=== PATIENT | female | born 1965 | race Two or more races ===

== ENCOUNTER 2017-07-11 14:50 | Inpatient (IN) | payer SELFPAY ==
[~2017-07-11] VITALS: Ht 152.4 cm; Wt 44.0 kg
[2017-07-11] VITALS (9 sets, daily range): BP systolic 127–162; BP diastolic 74–88; PULSE 60–82; RESP 16–20; TEMP 98.7–99; O2SAT 97–100
[2017-07-11 15:13] LABS: AUTOMATED NEUTROPHIL # 4.1 TH/MM3 (1.8-7.7); BASOPHIL # 0.1 TH/MM3 (0-0.2); BASOPHIL % 0.9 % (0.0-2.0); EOSINOPHIL # 0.1 TH/MM3 (0-0.4); HEMATOCRIT 38.4 % (35.0-46.0); HEMOGLOBIN 11.8 GM/DL (11.6-15.3); LYMPH % 36.5 % (9.0-44.0); LYMPHOCYTE # 2.6 TH/MM3 (1.0-4.8); MEAN CELL VOLUME 65.7 FL (80.0-100.0); MEAN CORPUSCULAR HEMOGLOBIN 20.3 PG (27.0-34.0); MEAN CORPUSCULAR HGB CONC 30.9 % (32.0-36.0); MONO % 4.6 % (0.0-8.0); MONOCYTE # 0.3 TH/MM3 (0-0.9); PLATELET COUNT 282 TH/MM3 (150-450); RED BLOOD COUNT 5.84 MIL/MM3 (4.00-5.30); RED CELL DISTRIBUTION WIDTH 15.3 % (11.6-17.2); WHITE BLOOD COUNT 7.2 TH/MM3 (4.0-11.0)
[2017-07-11 15:16] LABS: CHLORIDE 105 MEQ/L (98-107); SODIUM (NA) 139 MEQ/L (136-145)
--- NOTE | 2017-07-11 15:17 | RADRPT ---
EXAM DATE: 07/11/2017 3:07 PM EDT AGE/SEX: 52 years / Female INDICATIONS: Stroke alert, left sided weakness today. CLINICAL DATA: This is the patient's initial encounter. Patient reports that signs and symptoms have been present for 1 day and indicates a pain score of Nonresponsive. MEDICAL/SURGICAL HISTORY: Non-responsive. Non-responsive. RADIATION DOSE: 52.41 CTDI (mGy) COMPARISON: No prior [place] exams available for comparison. Report was called by [ ] TECHNIQUE: CT of the head without contrast. Using automated exposure control and adjustment of the mA and/or kV according to patient size, radiation dose was kept as low as reasonably achievable to ob tain optimal diagnostic quality images. FINDINGS: Acute parenchymal hemorrhage seen in the region of the right thalamus. The bleed measures a pproximately 2 cm in size. Minimal mass effect on surrounding parenchyma. No measurable midline shift . Previous aneurysm clipping of the right side of the [place]. No bleed or other acute abnorma lity in this region. 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 No evidence of an acute ischemic event. Nothing christina t looks like a mass either. Previous right frontotemporal craniotomy. No acute skull abnormality demonstrated. CONCLUSION: Acute right thalamic bleed. No measurable midline shift. No other acute intracranial abno rmality demonstrated. Report called to Dr. Meraz at 3:12 PM. Electronically signed by: Ubaldo Villegas MD 07/11/2017 3:15 PM EDT
[2017-07-11 15:19] LABS: CALCIUM 9.1 MG/DL (8.5-10.1); PROTHROMBIN TIME - PATIENT 10.3 SEC (9.8-11.6)
[2017-07-11 15:20] LABS: ALBUMIN 4.5 GM/DL (3.4-5.0); BICARBONATE 27.1 MEQ/L (21.0-32.0); BLOOD UREA NITROGEN 13 MG/DL (7-18); GLUCOSE,RANDOM 125 MG/DL (74-106)
[2017-07-11] MEDS ORDERED: LIPI40TA PO (15:20)
[2017-07-11] MEDS ORDERED: LISI-519 PO (15:20)
[2017-07-11 15:23] LABS: ALT (GPT) 46 U/L (10-53); AST (GOT) 45 U/L (15-37); CREATININE 0.91 MG/DL (0.50-1.00); GLOMERULAR FILTRATION RATE 64 ML/MIN (>89)
[2017-07-11 15:24] LABS: TOTAL BILIRUBIN ADULT 0.5 MG/DL (0.2-1.0)
[2017-07-11 15:26] LABS: ALKALINE PHOSPHATASE 65 U/L (45-117)
[2017-07-11 15:28] LABS: TROPONIN I LESS THAN 0.02 NG/ML (0.02-0.05)
[2017-07-11] MEDS ORDERED: IODIXANOL 320 MG/ML 10 ML VIAL (for Rad CT) IVCONTRAST ONE (15:30)
[2017-07-11] MEDS ORDERED: LISI10TA3 PO (15:39)
[2017-07-11] MEDS ORDERED: ZANT150T2 PO (15:39)
[2017-07-11] MEDS ORDERED: MAGNESIUM HYDROXIDE SUSP 30 ML CUP PO PRN (16:00)
[2017-07-11] MEDS ORDERED: MORPHINE SULFATE 4 MG/ML INJ IV PUSH PRN (16:00)
[2017-07-11] MEDS ORDERED: LABETALOL HCL 100 MG/20 ML VIAL IV PUSH PRN (16:00)
[2017-07-11] MEDS ORDERED: ENALAPRILAT 2.5 MG/2 ML VIAL IV PUSH PRN (16:00)
[2017-07-11] MEDS ORDERED: LACTULOSE SYRUP 20 GM/30 ML CUP PO PRN (16:00)
[2017-07-11] MEDS ORDERED: RESP: ALBUTEROL 2.5 MG/3 ML NEB (PRN) INH (16:00)
[2017-07-11] MEDS ORDERED: CHLORHEXIDINE GLUCONATE 2 % 1 PACK (2 CLOTHS) TOP PRN (16:00)
[2017-07-11] MEDS ORDERED: BISACODYL 10 MG SUPP RECTAL PRN (16:00)
[2017-07-11] MEDS ORDERED: ACETAMINOPHEN 325 MG TAB PO PRN (16:00)
[2017-07-11] MEDS ORDERED: NURSING INFORMATION XX SCH (16:00)
[2017-07-11] MEDS ORDERED: niCARdipine INJ 25 MG in SODIUM CHLOR 0.9% 250 ML INJ 250 ML IV PRN (16:00)
[2017-07-11] MEDS ORDERED: ONDANSETRON HCL 4 MG/2 ML VIAL IV PUSH PRN (16:00)
[2017-07-11] MEDS ORDERED: SODIUM CHLORIDE 0.9% FLUSH 10 ML FLUSH IV FLUSH PRN (16:00)
[2017-07-11] MEDS ORDERED: SENNOSIDES 8.6 MG TAB PO PRN (16:00)
--- NOTE | 2017-07-11 16:05 | PD ---
HPI Chief Complaint: Stroke Alert Time Seen by Provider: 14:56 Travel History International Travel<30 days: No Contact w/Intl Traveler<30days: No Traveled to known affect area: No History of Present Illness HPI 52 y/o female presents with five-minute onset of left-sided weakness and numbness. She states that she has no other concurrent complaints at this time. She states she has had 2 prior strokes but is not on any blood thinners. When I asked her why she states she has had prior bleeding on the brain. She denies any modifying factors. Quality is tingly. Severity is entire left side. Duration is 5 minutes. PFSH Past Medical History Cancer: Yes (BREAST RESOLVED) High Cholesterol: Yes Cerebrovascular Accident: Yes GERD: Yes Hypertension: Yes Tetanus Vaccination: < 5 Years Influenza Vaccination: Yes ?: Not Past Surgical History Neurologic Surgery: Yes (NEURO SX ANEURYSM CLIPS IN BRAIN) Other Surgery: Yes (LEFT BREAST LUMPECTOMY) Social History Alcohol Use: No Tobacco Use: No Substance Use: No Allergies-Medications (Allergen,Severity, Reaction): Coded Allergies: No Known Allergies (Unverified , 07/11/17) Reported Meds & Prescriptions Reported Meds & Active Scripts Active Reported Zantac (Ranitidine HCl) 150 Mg Tab 150 Mg PO DAILY Lisinopril 10 Mg Tab 10 Mg PO DAILY Lipitor (Atorvastatin Calcium) 40 Mg Tab 40 Mg PO HS Review of Systems Except as stated in HPI: all other systems reviewed are Neg Physical Exam Exam Limitations: Other: (Acute weakness) Narrative GENERAL: 52-year-old female in no apparent distress SKIN: Focused skin assessment warm/dry. HEAD: Atraumatic. Normocephalic. EYES: Pupils equal and round. No scleral icterus. No injection or drainage. ENT: No nasal bleeding or discharge. Mucous membranes pink and moist. NECK: Trachea midline. CARDIOVASCULAR: Regular rate and rhythm. RESPIRATORY: No accessory muscle use. Clear to auscultation. Breath sounds equal bilaterally. GASTROINTESTINAL: Abdomen soft, non-tender, nondistended. MUSCULOSKELETAL: No obvious deformities. No clubbing. No cyanosis. NEUROLOGICAL: Awake and alert. Decreased grasp on the left, pronator drift on the left, left leg drops after 1 second, normal speech. Patient states she feels numb to the entire left side of her body and her left lower face Data Data Last Documented VS Vital Signs Date Time Temp Pulse Resp B/P (MAP) Pulse Ox O2 Delivery O2 Flow Rate FiO2 07/11/17 15:38 98.7 68 16 152/76 (101) 98 Room Air 07/11/17 15:10 21 Orders Orders Cath For Specimen (07/11/17 14:56) Neuro Checks Q2HX12,Q4H (07/11/17 14:56) Nursing Bedside Swallow Assess .ONCE (07/11/17 14:56) Activity Bed Rest (07/11/17 14:56) Diet Npo (07/11/17 Dinner) Prothrombin Time / Inr (Pt) (07/11/17 14:56) Act Partial Throm Time (Ptt) (07/11/17 14:56) Complete Blood Count With Diff (07/11/17 14:56) Fibrinogen (07/11/17 14:56) Creatine Kinase (Cpk) (07/11/17 14:56) Troponin I (07/11/17 14:56) Ua Includes Microscopic (07/11/17 14:56) Drug Screen, Random Urine (07/11/17 14:56) Type And Screen (07/11/17 14:56) Ct Brain W/O Iv Contrast(Rout) (07/11/17 ) Cta Brain W Iv Contrast W 3d (07/11/17 14:56) Cta Neck W Iv Contrast W 3d (07/11/17 14:56) Chest, Single Ap (07/11/17 ) Electrocardiogram (07/11/17 ) Consult Neurology (07/11/17 14:56) Blood Glucose (07/11/17 14:56) Ecg Monitoring (07/11/17 14:56) Iv Access Insert/Monitor (07/11/17 14:56) NPO (07/11/17 14:56) Oximetry (07/11/17 14:56) Resp Oxygen Nc Stroke (07/11/17 ) Comprehensive Metabolic Panel (07/11/17 14:56) Iodixanol 320 Inj (Rad Ct) (Visipaque 32 (07/11/17 15:30) Admit Order (Ed Use Only) (07/11/17 15:45) Labs Laboratory Tests Test 07/11/17 14:55 White Blood Count 7.2 TH/MM3 Red Blood Count 5.84 MIL/MM3 Hemoglobin 11.8 GM/DL Hematocrit 38.4 % Mean Corpuscular Volume 65.7 FL Mean Corpuscular Hemoglobin 20.3 PG Mean Corpuscular Hemoglobin Concent 30.9 % Red Cell Distribution Width 15.3 % Platelet Count 282 TH/MM3 Mean Platelet Volume 10.0 FL Neutrophils (%) (Auto) 57.0 % Lymphocytes (%) (Auto) 36.5 % Monocytes (%) (Auto) 4.6 % Eosinophils (%) (Auto) 1.0 % Basophils (%) (Auto) 0.9 % Neutrophils # (Auto) 4.1 TH/MM3 Lymphocytes # (Auto) 2.6 TH/MM3 Monocytes # (Auto) 0.3 TH/MM3 Eosinophils # (Auto) 0.1 TH/MM3 Basophils # (Auto) 0.1 TH/MM3 CBC Comment AUTO DIFF Differential Comment AUTO DIFF CONFIRMED Prothrombin Time 10.3 SEC Prothromb Time International Ratio 1.0 RATIO Activated Partial Thromboplast Time 23.8 SEC Fibrinogen 242 mg/dL Blood Urea Nitrogen 13 MG/DL Creatinine 0.91 MG/DL Random Glucose 125 MG/DL Total Protein 9.0 GM/DL Albumin 4.5 GM/DL Calcium Level 9.1 MG/DL Alkaline Phosphatase 65 U/L Aspartate Amino Transf (AST/SGOT) 45 U/L Alanine Aminotransferase (ALT/SGPT) 46 U/L Total Bilirubin 0.5 MG/DL Sodium Level 139 MEQ/L Potassium Level 4.8 MEQ/L Chloride Level 105 MEQ/L Carbon Dioxide Level 27.1 MEQ/L Anion Gap 7 MEQ/L Estimat Glomerular Filtration Rate 64 ML/MIN Phosphorus Level 3.6 MG/DL Magnesium Level 2.5 MG/DL Total Creatine Kinase 143 U/L Troponin I LESS THAN 0.02 NG/ML [facility] Medical Decision Making Medical Screen Exam Complete: Yes Emergency Medical Condition: Yes Medical Record Reviewed: Yes (Past history confirmed) Interpretation(s) CBC & BMP Diagram 07/11/17 14:55 Total Protein 9.0 H, Albumin 4.5, Calcium Level 9.1, Alkaline Phosphatase 65, Aspartate Amino Transf (AST/SGOT) 45 H, Alanine Aminotransferase (ALT/SGPT) 46, Total Bilirubin 0.5 Last [address] 07/11/17 0000 Signed Impressions: CONCLUSION: Acute right thalamic bleed. No measurable midline shift. No other a cute intracranial abnormality demonstrated. Report called to Dr. Meraz at 3:12 P M. cta prelim discussed with radiologist and no large aneurysm or clot or critical stenosis Differential Diagnosis Stroke, bleed, mass Narrative Course Given timeline stroke alert was initiated. With history of prior intracranial hemorrhage she is not a candidate for TPA. Saw large bleed on initial CT and discussed with neurosurgery. Initial blood pressure is stable so no antihypertensive needed at this time. Patient updated and agrees to admission. on recheck no change in symptoms, will go to ICU for close monitoring Critical Care Narrative Aggregate critical care time was 35 minutes. Time to perform other separately billable procedures was not included in the critical care time. My time did not include minutes spent treating any other patients simultaneously or on activities that did not directly contribute to the patient's treatment. The services I provided to this patient were to treat and/or prevent clinically significant deterioration that could result in: Herniation, I provided critical care services requiring my management, as noted below: Chart data review, documentation time, medication orders and management, vital sign assessments/reviewing monitor data, ordering and reviewing lab tests, ordering and interpreting/reviewing x-rays and diagnostic studies, care of the patient and discussion of the patient with the admitting physicians. Physician Communication Physician Communication dr gutierrez will follow at the main dr gar agrees to admit Diagnosis Primary Impression: Thalamic hemorrhage Admitting Information Admitting Physician Requests: Admit Obdulia Meraz MD Jul 11, 2017 16:05
--- NOTE | 2017-07-11 16:08 | RADRPT ---
EXAM DATE: 07/11/2017 3:50 PM EDT AGE/SEX: 52 years / Female INDICATIONS: Stroke alert. CLINICAL DATA: This is the patient's initial encounter. Patient reports that signs and symptoms have been present for 1 day and indicates a pain score of 0/10. MEDICAL/SURGICAL HISTORY: None. None. COMPARISON: No prior [place] exams available for comparison. FINDINGS: A single AP view of the chest demonstrates the lungs to be symmetrically aerated without evidence of mass, infiltrate or effusion. The cardiomediastinal contours are unremarkable. Osseous structures a re intact. CONCLUSION: No evidence of acute cardiopulmonary disease. Electronically signed by: Ubaldo Villegas MD 07/11/2017 4:07 PM EDT
[2017-07-11] MEDS: SODIUM CHLOR 0.9% 1000 ML INJ 1,000 ML IV SCH (16:20)
[2017-07-11 16:35] LABS: BILIRUBIN, URINE NEG (NEG); BLOOD, URINE NEG (NEG); GLUCOSE,URINE NEG (NEG); KETONE, URINE NEG (NEG); NITRITE,URINE NEG (NEG); PH, URINE 6.5 (5.0-8.5); URINE LEUKOCYTE ESTERASE NEG (NEG)
[2017-07-11 16:39] LABS: URINE COLOR STRAW (YELLW/STRAW)
--- NOTE | 2017-07-11 16:41 | RADRPT ---
EXAM DATE: 07/11/2017 4:29 PM EDT AGE/SEX: 52 years / Female INDICATIONS: Stroke alert, left sided weakness today. CLINICAL DATA: This is the patient's initial encounter. Patient reports that signs and symptoms have been present for 1 day and indicates a pain score of Nonresponsive. MEDICAL/SURGICAL HISTORY: Non-responsive. Non-responsive. RADIATION DOSE: 42.24 CTDI (mGy) ; Combined studies COMPARISON: CT of the brain dated 07/11/2017 is used for comparison TECHNIQUE: Volumetric scanning was performed using a multi-row detector CT scanner during bolus infu prince of 97 ml Visipaque 320 (iodixanol) nonionic water-soluble contrast as a cumulative dose for mul tiple exams. The data was post processed with a variety of visualization algorithms including full volume maximum intensity projection, multi-planar sliding thin slab reformation, curved planar reform ation, and surface rendering techniques. Using automated exposure control and adjustment of the mA a nd/or kV according to patient size, radiation dose was kept as low as reasonably achievable to obtain optimal diagnostic quality images. FINDINGS: There is excellent visualization of the major intracranial arteries out to the second-order branch ve ssels. There is no evidence for aneurysm, vessel truncation or stenosis, and no evidence for vascula r malformation. Aneurysm clip is again noted in the expected region of the right A1 segment. CONCLUSION: 1. No evidence of significant stenosis or occlusion. The findings were discussed with Dr. Meraz at 4:40 PM on 07/11/2017. Electronically signed by: Kwaku Larry MD 07/11/2017 4:40 PM EDT
[2017-07-11 16:43] LABS: AMORPHOUS SEDIMENT, URINE MOD; SQUAMOUS EPITHELIAL CELL URINE 0-5 /hpf (0-5)
[2017-07-11 17:06] LABS: MAGNESIUM 2.5 MG/DL (1.5-2.5)
--- NOTE | 2017-07-11 17:06 | RADRPT ---
EXAM DATE: 07/11/2017 3:34 PM EDT AGE/SEX: 52 years / Female INDICATIONS: Stroke alert, left sided weakness today. CLINICAL DATA: This is the patient's initial encounter. Patient reports that signs and symptoms have been present for 1 day and indicates a pain score of Nonresponsive. MEDICAL/SURGICAL HISTORY: Non-responsive. Non-responsive. RADIATION DOSE: 42.24 CTDI (mGy) ; Combined studies COMPARISON: No prior [place] exams available for comparison. TECHNIQUE: Volumetric scanning was performed using a multirow detector CT scanner during bolus infus ion of 97 ml Visipaque 320 (iodixanol) nonionic water-soluble contrast as a cumulative dose for mult iple exams. The data was postprocessed with a variety of visualization algorithms including full-vo lume maximum intensity projection, multiplanar sliding thin-slab reformation, curved-planar reformati on, and surface-rendering techniques. Using automated exposure control and adjustment of the mA and/ or kV according to patient size, radiation dose was kept as low as reasonably achievable to obtain op timal diagnostic quality images. Elevated flow velocities and ICA/CCA ratios have been found to correlate with increased degrees of ve ssel stenosis, calculated as percentage of diameter relative to a normal segment of distal ICA/CCA. FINDINGS: Aortic Arch: There is a three-vessel origin of the great vessels from the aorta. No evidence of ost ial narrowing Right Carotid: The common carotid artery is intact. The carotid bulb has a normal configuration wit hout ulceration or narrowing. The internal carotid artery lumen is smooth without stenosis. The ext ernal carotid artery is intact. Left Carotid: The common carotid artery is intact. The carotid bulb has a normal configuration with out ulceration or narrowing. The internal carotid artery lumen is smooth without stenosis. The exte rnal carotid artery is intact. Vertebrals: The vertebral arteries have a symmetric diameter. No stenotic lesions are seen. There is pleural thickening and adjacent parenchymal consolidation of the visualized left lung apex, presumably scarring but a 3 month follow-up noncontrast chest CT is suggested. CONCLUSION: 1. Carotid CTA within normal limits. 2. Mildly masslike pleural thickening and parenchymal consolidation of the left lung apex. Please se e above. Electronically signed by: Ubaldo Villegas MD 07/11/2017 5:04 PM EDT
[2017-07-11 17:10] LABS: PHOSPHORUS 3.6 MG/DL (2.5-4.9)
[2017-07-11] MEDS: DOCUSATE SODIUM 50 MG/SENNA 8.6 MG TAB PO SCH (20:10)
[2017-07-11] MEDS: ATORVASTATIN 40 MG TAB PO SCH (20:10)
[2017-07-11] MEDS: levETIRAcetam INJ 100 ML IV SCH (20:10)
[2017-07-11] MEDS: SODIUM CHLORIDE 0.9% FLUSH 10 ML FLUSH IV FLUSH SCH (20:10)
--- NOTE | 2017-07-11 20:36 | MB ---
cc: Bo RENDON Jorge DATE: 07/11/2017 CHIEF COMPLAINT: Transfer from [facility]. HISTORY OF PRESENT ILLNESS: This is a 52-year-old female patient with previous history of craniotomy for aneurysm clipping. The patient reports that she had been doing well, when around 2 o'clock she noted significant weakness of the left side. At that time, she denies having any headaches or any nausea or vomiting. She went to [facility] for evaluation. CT scan was performed, which was abnormal and, because of this, the patient eventually was transferred. The patient reports that presently she is doing well. She feels that her weakness on the left side is improving. She denies any numbness at the present time. She denies any headaches or any problems with nausea and vomiting. PAST MEDICAL HISTORY: Remarkable for breast cancer resolved ,hypertension, GERD, aneurysm clipping and high cholesterol. PAST SURGICAL HISTORY: Includes craniotomy and left breast lumpectomy. SOCIAL HISTORY: She denies use of alcohol, tobacco or substance abuse. ALLERGIES: SHE HAS NO ALLERGIES. MEDICATIONS: 1. Zantac. 2. Lisinopril. 3. Lipitor. REVIEW OF SYSTEMS: Pertaining to above history as noted. PHYSICAL EXAMINATION: VITAL SIGNS: Blood pressure of 140/74, pulse of 71, temperature of 98.7, pulse oximetry of 98 with a respiratory rate of 16. GENERAL: The patient is sitting in bed in no acute distress, well-developed, thin female, pleasant. HEENT: Unremarkable, except for evidence of previous craniotomy. NECK: Supple with good carotid pulses bilaterally. CHEST: Symmetric. LUNGS: Clear. HEART: Shows a regular rhythm with normal heart sounds. ABDOMEN: Soft and nontender. EXTREMITIES: Clear. NEUROLOGIC: The patient is alert and awake. She is oriented x3. She follows commands well. Speech is fluent. She is pleasant. Cranial nerves 2-12 are intact, except for a mild asymmetry of the left face. Motor exam is 5+/5, except there is a mild pronator drift on the left side and the left leg has some very mild weakness. Sensory exam is intact to touch. Deep tendon reflexes are trace at all sites. IMAGING STUDIES: Review of a CT scan of the brain shows evidence of a right thalamic hemorrhage with minimal mass effect. There is also evidence of an aneurysm clip on the right and evidence of a previous craniotomy. CTA of the head showed no evidence of aneurysm or AVM. CTA of the neck was unremarkable for stenosis. OVERALL IMPRESSION: Hypertensive intracranial hemorrhage thalamic. RECOMMENDATIONS: At this time, place the patient on neurological observation with vital signs and neuro checks. Maintain control of the blood pressure, preferably in the range of the 120s. May need physical therapy, because of her left-sided weakness. Would keep on the clear liquids for tonight and then may advance diet in the morning if stable. She should also have a repeat CT scan of the brain in the morning. Bo TINSLEY/ , 08:01 PM , 08:35 PM MTDD
--- NOTE | 2017-07-11 23:44 | HHI.HP ---
[facility] Service Critical Care Medicine Primary Care Physician Unknown Admission Diagnosis Intracranial bleed Diagnosis: Travel History International Travel<30 Days: No Contact w/Intl Traveler <30 Da: No Traveled to Known Affected Are: No History of Present Illness 52-year-old female presents with a new onset of left-sided weakness and numbness. She has no other concurrent complaints at this time. She has had 2 prior strokes but is not on any blood thinners because she has had prior bleeding in the brain. She denies any modifying factors. CT head obtained in the emergency department showed acute right thalamic bleed with no measurable midline shift. Review of Systems Constitutional: DENIES: Diaphoretic episodes, Fatigue, Fever, Weight gain, Weight loss, Chills, Dizziness, Change in appetite, Night Sweats Endocrine: DENIES: Abnorml menstrual pattern, Heat/cold intolerance, Polydipsia , Polyuria, Polyphagia Eyes: DENIES: Blurred vision, Diplopia, Eye inflammation, Eye pain, Vision loss , Photosensitivity, Double Vision Ears, nose, mouth, throat: DENIES: Tinnitus, Hearing loss, Vertigo, Nasal discharge, Oral lesions, Throat pain, Hoarseness, Ear Pain, Running Nose, Epistaxis, Sinus Pain, Toothache, Odynophagia Respiratory: DENIES: Apneas, Cough, Snoring, Wheezing, Hemoptysis, Sputum production, Shortness of breath Cardiovascular: DENIES: Chest pain, Palpitations, Syncope, Dyspnea on Exertion , PND, Lower Extremity Edema, Orthopnea, Claudication Gastrointestinal: DENIES: Abdominal pain, Black stools, Bloody stools, Constipation, Diarrhea, Nausea, Vomiting, Difficulty Swallowing, Anorexia Genitourinary: DENIES: Abnormal vaginal bleeding, Dysmenorrhea, Dyspareunia, Sexual dysfunction, Urinary frequency, Urinary incontinence, Urgency, Hematuria , Dysuria, Nocturia, Vaginal discharge Musculoskeletal: DENIES: Joint pain, Muscle aches, Stiffness, Joint Swelling, Back pain, Neck pain Integumentary: DENIES: Abnormal pigmentation, Pruritus, Rash, Nail changes, Breast masses, Breast skin changes, Nipple discharge Hematologic/lymphatic: DENIES: Bruising, Lymphadenopathy Immunologic/allergic: DENIES: Eczema, Urticaria Neurologic: COMPLAINS OF: Abnormal gait, Localized weakness, Poor Balance, DENIES: Headache, Paresthesias, Seizures, Speech Problems, Tremor Psychiatric: DENIES: Anxiety, Confusion, Mood changes, Depression, Hallucinations, Agitation, Suicidal Ideation, Homicidal Ideation, Delusions Past Family Social History Allergies: Coded Allergies: No Known Allergies (Unverified , 07/11/17) Past Medical History Breast cancer in remission Hypertension GERD Cerebral aneurysm High cholesterol Past Surgical History Craniotomy Left breast lumpectomy. Reported Medications Reported Meds & Active Scripts Active Reported Zantac (Ranitidine HCl) 150 Mg Tab 150 Mg PO DAILY Lisinopril 10 Mg Tab 10 Mg PO DAILY Lipitor (Atorvastatin Calcium) 40 Mg Tab 40 Mg PO HS Active Ordered Medications Current Medications Medications (Trade) Dose Ordered Sig/Mallory Route PRN Reason Start Time Stop Time Status Last Admin Dose Admin Sodium Chloride 1,000 ml @ 84 mls/hr [id number] IV 07/11/17 15:54 07/11/17 16:20 Sodium Chloride (NS Flush) 2 ml UNSCH PRN IV FLUSH FLUSH AFTER USING IV ACCESS 07/11/17 16:00 Sodium Chloride (NS Flush) 2 ml BID IV FLUSH 07/11/17 21:00 07/11/17 20:10 Acetaminophen (Tylenol) 650 mg Q6H PRN PO FEVER >101F 07/11/17 16:00 Acetaminophen/ Hydrocodone Bitart ([place] 5-325 Mg) 1 tab Q4H PRN PO PAIN SCALE 1 TO 5 07/11/17 16:00 Morphine Sulfate (Morphine Inj) 2 mg Q2H PRN IV PUSH PAIN SCALE 6 TO 10 07/11/17 16:00 Pantoprazole Sodium (Protonix Inj) 40 mg DAILY IV PUSH 07/12/17 09:00 Ondansetron HCl (Zofran Inj) 4 mg Q6H PRN IV PUSH NAUSEA OR VOMITING 07/11/17 16:00 Albuterol Sulfate (Albuterol Neb) 2.5 mg Q2HR NEB PRN INH SOB/WHEEZING 07/11/17 16:00 Miscellaneous Information ([facility] [place] [facility] Information) 1 [id number] XX 07/11/17 16:00 Chlorhexidine Gluconate (Chlorhexidine 2% Cloth) 3 pack Taper DAILY@04 TOP 07/12/17 04:00 07/08/18 03:59 Chlorhexidine Gluconate (Chlorhexidine 2% Cloth) 3 pack UNSCH PRN [facility] 07/11/17 16:00 Senna/Docusate Sodium (Ivana-Colace) 1 tab BID PO 07/11/17 21:00 07/11/17 20:10 Magnesium Hydroxide (Milk Of Magnesia Liq) 30 ml Q12H PRN PO Mild constipation 07/11/17 16:00 Sennosides (Senokot) 17.2 mg Q12H PRN PO Moderate constipation 07/11/17 16:00 Bisacodyl (Dulcolax Supp) 10 mg DAILY PRN RECTAL SEVERE CONSITIPATION 07/11/17 16:00 Lactulose (Lactulose Liq) 30 ml DAILY PRN PO SEVERE CONSITIPATION 07/11/17 16:00 Labetalol HCl (Trandate Inj) 5 mg Q1HR PRN IV PUSH SBP>150, DBP>90, HR>65 07/11/17 16:00 Nicardipine HCl 25 mg/Sodium Chloride 260 ml @ 52 mls/hr TITRATE PRN IV Blood pressure management 07/11/17 16:00 Atorvastatin Calcium (Lipitor) 40 mg HS PO 07/11/17 21:00 07/11/17 20:10 Lisinopril (Prinivil) 10 mg DAILY PO 07/12/17 09:00 Enalaprilat (Vasotec Inj) 2.5 mg Q6H PRN IV PUSH SBP>150, DBP>90 07/11/17 16:00 07/11/17 20:10 Levetriacetam 100 ml @ 400 mls/hr Q12HR IV 07/11/17 21:00 07/18/17 20:59 07/11/17 20:10 Family History No family history of ICH Social History She denies use of alcohol, tobacco or substance abuse Physical Exam Vital Signs Vital Signs Date Time Temp Pulse Resp B/P (MAP) Pulse Ox O2 Delivery O2 Flow Rate FiO2 07/11/17 22:00 60 07/11/17 20:00 99.0 70 20 151/80 (103) 100 07/11/17 20:00 68 07/11/17 19:00 100 Room Air 07/11/17 18:12 07/11/17 18:04 71 140/74 (96) 07/11/17 17:44 Room Air 21 07/11/17 17:44 71 16 149/88 (108) 100 Room Air 07/11/17 16:49 72 16 127/79 (95) 97 Room Air 07/11/17 15:38 98.7 68 16 152/76 (101) 98 Room Air 07/11/17 15:33 98 Room Air 07/11/17 15:10 98 21 07/11/17 15:09 Room Air 07/11/17 15:09 98 Room Air 07/11/17 14:55 82 16 162/87 (112) 98 Room Air Physical Exam GENERAL: Well-nourished, well-developed patient. SKIN: Warm and dry. HEAD: Normocephalic. EYES: No scleral icterus. No injection or drainage. NECK: Supple, trachea midline. No JVD or lymphadenopathy. CARDIOVASCULAR: Regular rate and rhythm without murmurs, gallops, or rubs. RESPIRATORY: Breath sounds equal bilaterally. No accessory muscle use. GASTROINTESTINAL: Abdomen soft, non-tender, nondistended. MUSCULOSKELETAL: No cyanosis, or edema. BACK: Nontender without obvious deformity. NEURO EXAM: GCS: 15 Mental Status: The patient is alert and oriented to person, place, and time with normal speech. Cranial Nerves: Visual acuity intact bilaterally. Visual evans normal in all quadrants. Pupils are round, reactive to light. Extraocular movements are intact without ptosis. Hearing is normal bilaterally. Voice is normal. Tongue protrudes midline and moves symmetrically. Mild asymmetry of the left face. Motor exam is 5+/5, except on the left there is a mild pronator drift on the left side and the left leg has some very mild weakness. Sensory exam is intact to touch. Deep tendon reflexes are trace at all sites. Laboratory Laboratory Tests Test 07/11/17 14:55 07/11/17 16:30 White Blood Count 7.2 Red Blood Count 5.84 Hemoglobin 11.8 Hematocrit 38.4 Mean Corpuscular Volume 65.7 Mean Corpuscular Hemoglobin 20.3 Mean Corpuscular Hemoglobin Concent 30.9 Red Cell Distribution Width 15.3 Platelet Count 282 Mean Platelet Volume 10.0 Neutrophils (%) (Auto) 57.0 Lymphocytes (%) (Auto) 36.5 Monocytes (%) (Auto) 4.6 Eosinophils (%) (Auto) 1.0 Basophils (%) (Auto) 0.9 Neutrophils # (Auto) 4.1 Lymphocytes # (Auto) 2.6 Monocytes # (Auto) 0.3 Eosinophils # (Auto) 0.1 Basophils # (Auto) 0.1 CBC Comment AUTO DIFF Differential Comment AUTO DIFF CONFIRMED Prothrombin Time 10.3 Prothromb Time International Ratio 1.0 Activated Partial Thromboplast Time 23.8 Fibrinogen 242 Blood Urea Nitrogen 13 Creatinine 0.91 Random Glucose 125 Total Protein 9.0 Albumin 4.5 Calcium Level 9.1 Alkaline Phosphatase 65 Aspartate Amino Transf (AST/SGOT) 45 Alanine Aminotransferase (ALT/SGPT) 46 Total Bilirubin 0.5 Sodium Level 139 Potassium Level 4.8 Chloride Level 105 Carbon Dioxide Level 27.1 Anion Gap 7 Estimat Glomerular Filtration Rate 64 Phosphorus Level 3.6 Magnesium Level 2.5 Total Creatine Kinase 143 Troponin I LESS THAN 0.02 Thyroid Stimulating Hormone 3rd Gen 1.640 Urine Collection Type CLEAN CATCH Urine Color STRAW Urine Turbidity CLEAR Urine pH 6.5 Urine Specific [place] LESS/EQUAL 1.005 Urine Protein NEG Urine Glucose (UA) NEG Urine Ketones NEG Urine Occult Blood NEG Urine Nitrite NEG Urine Bilirubin NEG Urine Urobilinogen 0.2 Urine Leukocyte Esterase NEG Urine Squamous Epithelial Cells 0-5 Urine Amorphous Sediment MOD Urine Collection Time 1630 Urine Opiates Screen NEG Urine Barbiturates Screen NEG Urine Amphetamines Screen NEG Urine Benzodiazepines Screen NEG Urine Cocaine Screen NEG Urine Cannabinoids Screen NEG Result Diagram: 07/11/17 1455 07/11/17 1455 Imaging Last 24 hours Impressions Neck CTA 07/11/17 1456 Signed Impressions: CONCLUSION: 1. Carotid CTA within normal limits. 2. Mildly masslike pleural thickening and parenchymal consolidation of the lef t lung apex. Please see above. Head CTA 07/11/17 1456 Signed Impressions: CONCLUSION: 1. No evidence of significant stenosis or occlusion. The findings were discussed with Dr. Meraz at 4:40 PM on 07/11/2017. Head CT 07/11/17 0000 Signed Impressions: CONCLUSION: Acute right thalamic bleed. No measurable midline shift. No other a cute intracranial abnormality demonstrated. Report called to Dr. Meraz at 3:12 P M. Chest X-Ray 07/11/17 0000 Signed Impressions: CONCLUSION: No evidence of acute cardiopulmonary disease. Caprini VTE Risk Assessment Caprini VTE Risk Assessment: Mod/High Risk (score >= 2) VTE Pharm Contraindication: Hemorrhage Caprini Risk Assessment Model Point Value = 1 Point Value = 2 Point Value = 3 Point Value = 5 Age 41-60 Minor surgery BMI > 25 kg/m2 Swollen legs Varicose veins or History of unexplained or recurrent spontaneous Oral contraceptives or hormone replacement Sepsis (< 1 month) Serious lung disease, including pneumonia (< 1 month) Abnormal pulmonary function Acute myocardial infarction Congestive heart failure (< 1 month) History of inflammatory bowel disease Medical patient at bed rest Age 61-74 Arthroscopic surgery Major open surgery (> 45 min) Laparoscopic surgery (> 45 min) Malignancy Confined to bed (> 72 hours) Immobilizing plaster cast Central venous access Age >= 75 History of VTE Family history of VTE Factor V Leiden Prothrombin [id number] Lupus anticoagulant Anticardiolipin antibodies Elevated serum homocysteine Heparin-induced thrombocytopenia Other congenital or acquired thrombophilia Stroke (< 1 month) Elective arthroplasty Hip, pelvis, or leg fracture Acute spinal cord injury (< 1 month) Prophylaxis Regimen Total Risk Factor Score Risk Level Prophylaxis Regimen 0-1 Low Early ambulation 2 Moderate Order ONE of the following: *Sequential Compression Device (SCD) *Heparin 5000 units SQ BID 3-4 Higher Order ONE of the following medications: *Heparin 5000 units SQ TID *Enoxaparin/Lovenox 40 mg SQ daily (WT < 150 kg, CrCl > 30 mL/min) *Enoxaparin/Lovenox 30 mg SQ daily (WT < 150 kg, CrCl > 10-29 mL/min) *Enoxaparin/Lovenox 30 mg SQ BID (WT < 150 kg, CrCl > 30 mL/min) AND/OR *Sequential Compression Device (SCD) 5 or more Highest Order ONE of the following medications: *Heparin 5000 units SQ TID (Preferred with Epidurals) *Enoxaparin/Lovenox 40 mg SQ daily (WT < 150 kg, CrCl > 30 mL/min) *Enoxaparin/Lovenox 30 mg SQ daily (WT < 150 kg, CrCl > 10-29 mL/min) *Enoxaparin/Lovenox 30 mg SQ BID (WT < 150 kg, CrCl > 30 mL/min) AND *Sequential Compression Device (SCD) Assessment and Plan Assessment and Plan Thalamic bleed -No surgical intervention indicated -Neurosurgery consultation appreciated -Blood pressure control to keep his BP less than 140 -Repeat CT a.m. -Monitor coags -PT and OT eval and treat as tolerated -Further management per neurosurgery -Keppra seizure prophylaxis Hypertension -Nicardipine drip to keep his BP less than 140 -Lisinopril GERD -Pantoprazole Dyslipidemia -Atorvastatin DVT GI prophylaxis -Minh's and SCDs -No pharmacological DVT prophylaxis due to acute ICH -Pantoprazole Critical Care: The total critical care time was 35 minutes. Time to perform other separately billable procedures was not included in the critical care time. Colten Gloria MD Jul 11, 2017 23:44
[2017-07-12] VITALS (12 sets, daily range): BP systolic 110–138; BP diastolic 56–88; PULSE 58–77; RESP 13–27; TEMP 98.4–99.1; O2SAT 97–100
[2017-07-12] MEDS: CHLORHEXIDINE GLUCONATE 2 % 1 PACK (2 CLOTHS) TOP SCH (03:53)
[2017-07-12] MEDS: SODIUM CHLOR 0.9% 1000 ML INJ 1,000 ML IV SCH (04:38)
[2017-07-12 04:41] LABS: AUTOMATED NEUTROPHIL # 4.2 TH/MM3 (1.8-7.7); BASOPHIL % 0.6 % (0.0-2.0); EOSINOPHIL # 0.1 TH/MM3 (0-0.4); EOSINOPHIL % 1.3 % (0.0-4.0); HEMATOCRIT 32.5 % (35.0-46.0); HEMOGLOBIN 10.4 GM/DL (11.6-15.3); LYMPHOCYTE # 1.9 TH/MM3 (1.0-4.8); MEAN CELL VOLUME 63.9 FL (80.0-100.0); MEAN CORPUSCULAR HEMOGLOBIN 20.5 PG (27.0-34.0); MEAN PLATELET VOLUME 8.9 FL (7.0-11.0); MONO % 5.5 % (0.0-8.0); MONOCYTE # 0.4 TH/MM3 (0-0.9); NEUT % 63.6 % (16.0-70.0); PLATELET COUNT 205 TH/MM3 (150-450); RED BLOOD COUNT 5.08 MIL/MM3 (4.00-5.30); RED CELL DISTRIBUTION WIDTH 15.8 % (11.6-17.2); WHITE BLOOD COUNT 6.6 TH/MM3 (4.0-11.0)
[2017-07-12 04:59] LABS: ALBUMIN 3.5 GM/DL (3.4-5.0); ALT (GPT) 38 U/L (10-53); AST (GOT) 24 U/L (15-37); BICARBONATE 21.6 MEQ/L (21.0-32.0); BLOOD UREA NITROGEN 12 MG/DL (7-18); CALCIUM 8.3 MG/DL (8.5-10.1); CHLORIDE 110 MEQ/L (98-107); CREATININE 0.74 MG/DL (0.50-1.00); GLOMERULAR FILTRATION RATE 82 ML/MIN (>89); GLUCOSE,RANDOM 85 MG/DL (74-106); MAGNESIUM 2.3 MG/DL (1.5-2.5); SODIUM (NA) 143 MEQ/L (136-145)
[2017-07-12 05:01] LABS: ALKALINE PHOSPHATASE 54 U/L (45-117); TOTAL BILIRUBIN ADULT 0.9 MG/DL (0.2-1.0); TOTAL PROTEIN 7.3 GM/DL (6.4-8.2)
[2017-07-12 05:16] LABS: PROTHROMBIN TIME - PATIENT 10.9 SEC (9.8-11.6)
[2017-07-12 05:17] LABS: INTERNATIONAL NORMALIZED RATIO 1.1 RATIO
--- NOTE | 2017-07-12 05:23 | RADRPT ---
EXAM DATE: 07/12/2017 4:12 AM EDT AGE/SEX: 52 years / Female INDICATIONS: Follow up hemorrhage. CLINICAL DATA: This is the patient's subsequent encounter. Patient reports that signs and symptoms h ave been present for 1 day and indicates a pain score of 0/10. MEDICAL/SURGICAL HISTORY: Aneurysm, intracranial. Cerebrovascular disease. Hypertension. GERD B reast cancer . Aneurysm clips RADIATION DOSE: 36.32 CTDI (mGy) COMPARISON: [facility], CT BRAIN W/O CONTRAST, 07/11/2017. . TECHNIQUE: CT of the head without contrast. Using automated exposure control and adjustment of the mA and/or kV according to patient size, radiation dose was kept as low as reasonably achievable to ob tain optimal diagnostic quality images. FINDINGS: Cerebrum: There is a persistent 2 cm hemorrhage at the posterior right thalamus. This is unchanged f rom the prior exam. There is an aneurysm clip seen at the right suprasellar cistern region. There is encephalomalacia at the right temporal and parietal lobes. There is some dilatation of the temporal h orn of the right lateral ventricle in response to the encephalomalacia. The ventricles are otherwise normal for age. No evidence of midline shift. Calcifications are seen at the medial aspect of the ba karen ganglia. Posterior Fossa: The cerebellum and brainstem are intact. The 4th ventricle is midline. The cerebe llopontine angle is unremarkable. Extracranial: The visualized portion of the orbits is intact. Skull: The patient is status post right frontotemporal craniotomy. CONCLUSION: 1. Persistent stable 2 cm hemorrhage at the right thalamus. 2. Encephalomalacia involving portions of the right temporal and parietal lobes. 3. Status post right frontotemporal craniotomy. There is an aneurysm clip seen at the right suprasel lar cistern region. Electronically signed by: Ubaldo Cheung MD 07/12/2017 5:21 AM EDT
--- NOTE | 2017-07-12 06:35 | HHI.CCPN ---
Subjective Remarks/Hospital Course 52-year-old female presents with a new onset of left-sided weakness and numbness. She has no other concurrent complaints at this time. She has had 2 prior strokes but is not on any blood thinners because she has had prior bleeding in the brain. She denies any modifying factors. CT head obtained in the emergency department showed acute right thalamic bleed with no measurable midline shift. SUBJECTIVE: 07/12: Afebrile. No acute issues overnight. Currently resting in bed in no acute distress. Repeat brain CT this a.m. reveals stable right thalamic hemorrhage. Objective Vital Signs Date Time Temp Pulse Resp B/P (MAP) Pulse Ox O2 Delivery O2 Flow Rate FiO2 07/12/17 06:00 77 07/12/17 04:00 98.4 16 135/88 (104) 98 07/11/17 19:00 Room Air 07/11/17 17:44 21 Intake and Output 07/12/17 07/12/17 07/13/17 08:00 16:00 00:00 Intake Total 1000 ml Output Total 900 ml Balance 100 ml Result Diagram: 07/12/17 0359 07/12/17 0359 Imaging Last Impressions Head CT 07/12/17 0600 Signed Impressions: CONCLUSION: 1. Persistent stable 2 cm hemorrhage at the right thalamus. 2. Encephalomalacia involving portions of the right temporal and parietal lobe s. 3. Status post right frontotemporal craniotomy. There is an aneurysm clip seen at the right suprasellar cistern region. Neck CTA 07/11/17 1456 Signed Impressions: CONCLUSION: 1. Carotid CTA within normal limits. 2. Mildly masslike pleural thickening and parenchymal consolidation of the lef t lung apex. Please see above. Head CTA 07/11/17 1456 Signed Impressions: CONCLUSION: 1. No evidence of significant stenosis or occlusion. The findings were discussed with Dr. Meraz at 4:40 PM on 07/11/2017. Chest X-Ray 07/11/17 0000 Signed Impressions: CONCLUSION: No evidence of acute cardiopulmonary disease. Objective Remarks GENERAL: 52-year-old female currently resting in bed in no acute distress SKIN: Warm and dry. Well perfused HEAD: History of right frontoparietal craniotomy EYES: Pulses are 2 mm bilaterally and reactive no scleral icterus. No injection or drainage. NECK: Supple, trachea midline. No JVD or lymphadenopathy. CARDIOVASCULAR: RRR. S1, S2. No S4. Without murmur RESPIRATORY: Breath sounds equal bilaterally. No accessory muscle use. GASTROINTESTINAL: Abdomen soft, non-tender, nondistended. Bowel sounds are present MUSCULOSKELETAL: No significant peripheral edema. NEURO EXAM: Slight left facial droop. Pronator drift on left side. Strength left lower extremity 4-5. Right upper and lower extremity 5 out of 5. Left upper extremity 5 out of 5. Sensation intact. Gait was not assessed. Urinary Catheter: No Assessment to: Continue Vascular Central Line Catheter: No Assessment to: Continue A/P Assessment and Plan Neuro/Psych: Acute right thalamic intracerebral hemorrhage History of right frontoparietal craniotomy with history of aneurysmal [address] brain 07/12 revealed stable tubes centimeter right thalamic intraparenchymal hemorrhage. Old history of right frontoparietal craniotomy with aneurysmal clipping noted. CTA brain/neck revealed no aneurysms Evaluated by neurosurgery. No intervention planned at this time Levetiracetam 500 mg IV twice daily for 7 total days for seizure prophylaxis Keep systolic blood pressure less than 140 Neurochecks CV: Essential hypertension Hyperlipidemia Continue lisinopril 10 mg daily for essential hypertension As needed labetalol and enalapril and nicardipine drip keep systolic blood pressure less than 140 Continue atorvastatin 40 mg daily for dyslipidemia Discontinue normal saline at 84 cc an hour Resp: Left lung apex pleural thickening Nasal cannula to maintain saturations greater than or equal to 92% Incentive spirometry while awake Albuterol aerosols every 2 hours as needed dyspnea Recommend follow-up CT thorax in 3 months to follow-up on left apex pleural thickening GI: Gastroesophageal reflux disease Advance diet per neurosurgery Currently on pantoprazole 40 mg daily. Switch to p.o. On ranitidine 150 mg daily at home for GERD Docusate sodium/senna 1 tablet twice daily for bowel regimen : No indication for House catheter Endo: Sliding scale insulin if indicated to maintain euglycemia Renal: Creatinine currently within normal limits Monitor urine output Accurate I's and O's Heme: Microcytic anemia Monitor CBC daily. Follow trend Hemoccult stool Iron studies/transferrin/ferritin/reticulocyte count and peripheral smear pending ID: Monitor for signs and symptomatology of infection FEN: Replace electrolytes as clinically indicated MSK: PT evaluate and treat Access -utilize peripheral IV. Central line if indicated Prophylaxis -GI -pantoprazole -DVT -SCD/pharmacological prophylaxis when okay with neurosurgery Level 2 follow-up. Patient is stable from a critical care medicine standpoint. We will assign care to hospitalist in a.m. 07/13. Jose F Mueller MD Jul 12, 2017 06:35
[2017-07-12] MEDS ORDERED: PANTOPRAZOLE SODIUM 40 MG VIAL IV PUSH SCH (09:00)
[2017-07-12] MEDS: DOCUSATE SODIUM 50 MG/SENNA 8.6 MG TAB PO SCH ×2 (09:04→21:06)
[2017-07-12] MEDS: levETIRAcetam INJ 100 ML IV SCH ×2 (09:04→21:05)
[2017-07-12] MEDS: PANTOPRAZOLE SOD 40 MG DELAYED RELEASE TAB PO SCH (09:04)
[2017-07-12] MEDS: LISINOPRIL 10 MG TAB PO SCH (09:04)
[2017-07-12] MEDS: SODIUM CHLORIDE 0.9% FLUSH 10 ML FLUSH IV FLUSH SCH ×2 (09:04→21:05)
--- NOTE | 2017-07-12 14:23 | MB ---
cc: Lilian Amezcua MD DATE: 07/12/2017 REASON FOR CONSULTATION: Initially, this was a stroke alert, but found to have right thalamic bleed. HISTORY OF PRESENT ILLNESS: A 52-year-old woman visiting family from [place]. She has a significant history of 2 prior strokes, not on any blood thinners because she had a history of aneurysm with surgery. She had a CT in the ED that showed acute right thalamic bleed without shift, but stable repeat CT done today. PAST MEDICAL HISTORY: She has a history of breast cancer, hypertension, hyperlipidemia, cerebral aneurysm. SURGICAL HISTORY: Craniotomy, left breast lumpectomy. ACTIVE MEDICINES AT HOME: 1. Lisinopril 10 mg a day. 2. Lipitor 40 mg daily. 3. Zantac 150 mg daily. ALLERGIES: NONE REPORTED. PHYSICAL EXAMINATION: VITAL SIGNS: Currently blood pressure 138/81, saturating at 99% on room air, heart rate 59, temperature 99.1. NECK: Supple. HEART: Regular. NEUROLOGIC: She is awake, alert, good spirits. Pupils reactive. Face symmetrical. Tongue midline. Motor mccann strength is intact. Upper extremities, I do not see any drift. There is possibly very minimal weakness in the left foot. DTRs are symmetrical. Toes withdraw. Cerebellar is intact. Gait is withheld, defer to PT. IMAGING STUDIES: CT today revealed the right thalamic hemorrhage 2 cm. There is encephalomalacia in the right temporal and parietal lobe and right frontotemporal craniotomy, aneurysm clip seen in the right suprasellar cistern. LABORATORY DATA: Reviewed. Hemoglobin 10.4 today. Chemistry GFR is 82, calcium 8.3. TSH 1.640. Tox screen negative. IMPRESSION: Right thalamic hemorrhage with some residual numbness on the left face with mild weakness left leg. PLAN: Recommend continuing keeping her normotensive. CTA of the head and neck were done. No recurrence of aneurysm, no intracranial disease. Keppra started by neurosurgery, continue per recommendations. PT, OT evaluation and continue her blood pressure medicines, Lipitor, atorvastatin and as needed to keep her systolic less than 140, either p.r.n. labetalol, enalapril or nicardipine drip. She is again counseled on taking care of her blood pressure, avoiding salt and taking her medicine as recommended. No other testing for Neurology at this point. Continue current care per neurosurgery. Discharge planning. MD PADDY Hector , 12:02 PM , 02:22 PM
--- NOTE | 2017-07-12 16:54 | HHI.NSPN ---
History Interval History Patient offers no complaints Exam Results Vital Signs Date Time Temp Pulse Resp B/P (MAP) Pulse Ox O2 Delivery O2 Flow Rate FiO2 07/12/17 16:00 69 07/12/17 16:00 98.4 27 115/56 (75) 100 07/12/17 08:03 21 07/12/17 08:00 Room Air Intake and Output 07/12/17 07/12/17 07/13/17 08:00 16:00 00:00 Intake Total 1000 ml Output Total 900 ml Balance 100 ml Physical Examination Remains alert and awake. Follows commands well. Moves all extremities well. Mild left hemiparesis. Undergoing evaluation by PT Lab, Micro, Other Results CT head reviewed. Hemorrhage appears stable. No new changes Medical Decision Making Impression and Plan Patient is stable and doing well If blood pressure remains controlled may move to regular floor Bo Arzate MD Jul 12, 2017 16:54
--- NOTE | 2017-07-12 17:31 | EKG ---
Date Performed: 07/11/2017 Time Performed: 15:31:27 PTAGE: 52 years EKG: ECTOPIC ATRIAL RHYTHM ABNORMAL RHYTHM ECG NO PREVIOUS TRACING DOCTOR: Nayan Angel Interpretating Date/Time 07/12/2017 17:30:02
[2017-07-12] MEDS: ATORVASTATIN 40 MG TAB PO SCH (21:06)
[2017-07-13] VITALS (12 sets, daily range): BP systolic 119–144; BP diastolic 61–80; PULSE 62–82; RESP 16–30; TEMP 98–98.7; O2SAT 98–100
[2017-07-13] MEDS: CHLORHEXIDINE GLUCONATE 2 % 1 PACK (2 CLOTHS) TOP SCH (04:00)
[2017-07-13 06:57] LABS: AUTOMATED NEUTROPHIL # 4.5 TH/MM3 (1.8-7.7); BASOPHIL % 0.4 % (0.0-2.0); EOSINOPHIL # 0.1 TH/MM3 (0-0.4); EOSINOPHIL % 2.2 % (0.0-4.0); HEMOGLOBIN 11.1 GM/DL (11.6-15.3); LYMPH % 23.9 % (9.0-44.0); LYMPHOCYTE # 1.6 TH/MM3 (1.0-4.8); MEAN CELL VOLUME 63.8 FL (80.0-100.0); MEAN CORPUSCULAR HEMOGLOBIN 20.2 PG (27.0-34.0); MEAN CORPUSCULAR HGB CONC 31.7 % (32.0-36.0); MEAN PLATELET VOLUME 8.9 FL (7.0-11.0); MONO % 5.5 % (0.0-8.0); MONOCYTE # 0.4 TH/MM3 (0-0.9); PLATELET COUNT 202 TH/MM3 (150-450); RED BLOOD COUNT 5.49 MIL/MM3 (4.00-5.30); RED CELL DISTRIBUTION WIDTH 15.5 % (11.6-17.2); RETIC # 57.8 MIL/L (20.0-150.0); RETIC % 1.1 % (0.4-3.0); WHITE BLOOD COUNT 6.7 TH/MM3 (4.0-11.0)
[2017-07-13 07:23] LABS: ALBUMIN 3.7 GM/DL (3.4-5.0); AST (GOT) 17 U/L (15-37); BICARBONATE 24.6 MEQ/L (21.0-32.0); BLOOD UREA NITROGEN 13 MG/DL (7-18); CALCIUM 8.4 MG/DL (8.5-10.1); CHLORIDE 108 MEQ/L (98-107); CREATININE 0.79 MG/DL (0.50-1.00); GLOMERULAR FILTRATION RATE 76 ML/MIN (>89); GLUCOSE,RANDOM 91 MG/DL (74-106); MAGNESIUM 2.1 MG/DL (1.5-2.5); SODIUM (NA) 141 MEQ/L (136-145)
[2017-07-13 07:29] LABS: % SATURATION IRON PROFILE 24.5 % (20-50); ALKALINE PHOSPHATASE 56 U/L (45-117); ALT (GPT) 35 U/L (10-53); FERRITIN 44 NG/ML (8-252); IRON (FE) 79 MCG/DL (50-170); PHOSPHORUS 3.4 MG/DL (2.5-4.9); TOTAL BILIRUBIN ADULT 0.9 MG/DL (0.2-1.0); TOTAL IRON BINDING CAPACITY 322 MCG/DL (250-450); TOTAL PROTEIN 7.6 GM/DL (6.4-8.2)
[2017-07-13] MEDS: levETIRAcetam INJ 100 ML IV SCH ×2 (08:57→20:46)
[2017-07-13] MEDS: PANTOPRAZOLE SOD 40 MG DELAYED RELEASE TAB PO SCH (08:57)
[2017-07-13] MEDS: SODIUM CHLORIDE 0.9% FLUSH 10 ML FLUSH IV FLUSH SCH ×2 (08:57→20:46)
[2017-07-13] MEDS: LISINOPRIL 10 MG TAB PO SCH (08:57)
[2017-07-13] MEDS: DOCUSATE SODIUM 50 MG/SENNA 8.6 MG TAB PO SCH ×3 (08:57→21:00)
--- NOTE | 2017-07-13 10:00 | HHI.NSPN ---
(Lucia Galindo) Note Status Status: Progress Note (Lucia Galindo) Interval History Interval History This is a 52-year-old female patient with previous history of craniotomy for aneurysm clipping. The patient reports that she had been doing well, when around 2 o'clock she noted significant weakness of the left side. At that time, she denies having any headaches or any nausea or vomiting. She went to [place] for evaluation. CT scan was performed, which was abnormal and, because of this, the patient eventually was transferred. The patient reports that presently she is doing well. She feels that her weakness on the left side is improving. She denies any numbness at the present time. She denies any headaches or any problems with nausea and vomiting. 07/13: feels well, denies headaches, reports left side feels stronger, denies nausea, vomiting, seizures. wants to go home (Lucia Galindo) Labs, Micro, & Vital Signs Results Date Time Temp Pulse Resp B/P (MAP) Pulse Ox O2 Delivery O2 Flow Rate FiO2 07/13/17 06:00 68 07/13/17 04:00 98.0 66 17 134/61 (85) 98 07/13/17 04:00 66 07/13/17 02:00 65 07/13/17 00:00 98.2 71 16 122/73 (89) 98 07/13/17 00:00 71 07/12/17 22:00 66 07/12/17 20:00 98.5 70 18 113/79 (90) 98 07/12/17 20:00 74 07/12/17 19:00 100 Room Air 07/12/17 18:00 72 07/12/17 16:00 69 07/12/17 16:00 98.4 69 27 115/56 (75) 100 07/12/17 14:00 65 07/12/17 12:00 63 07/12/17 12:00 98.6 63 20 110/63 (79) 97 07/12/17 10:00 59 Constitutional Vital Signs Date Time Temp Pulse Resp B/P (MAP) Pulse Ox O2 Delivery O2 Flow Rate FiO2 07/13/17 06:00 68 07/13/17 04:00 98.0 66 17 134/61 (85) 98 07/13/17 04:00 66 07/13/17 02:00 65 07/13/17 00:00 98.2 71 16 122/73 (89) 98 07/13/17 00:00 71 07/12/17 22:00 66 07/12/17 20:00 98.5 70 18 113/79 (90) 98 07/12/17 20:00 74 07/12/17 19:00 100 Room Air 07/12/17 18:00 72 07/12/17 16:00 69 07/12/17 16:00 98.4 69 27 115/56 (75) 100 07/12/17 14:00 65 07/12/17 12:00 63 07/12/17 12:00 98.6 63 20 110/63 (79) 97 07/12/17 10:00 59 (Lucia Galindo) Review of Systems Constitutional: DENIES: Fever, Chills Eyes: DENIES: Diplopia, Double Vision Respiratory: DENIES: Shortness of breath Cardiovascular: DENIES: Chest pain, Palpitations Neurologic: COMPLAINS OF: Localized weakness, DENIES: Headache, Seizures, Speech Problems Psychiatric: DENIES: Confusion (Lucia Galindo) Physical Exam General: Sitting up in chair in no acute distress HEENT: Normocephalic. Nonicteric sclera. No nasal drainage. Neuro: Alert, awake and oriented to time, place and person. Speech is fluent. Follows commands without difficulties. Cranial nerve: pupils equal, round, and reactive to light. Extra-ocular movements are intact. Facial motor are normal and symmetrical. Gross hearing is intact, bilaterally. The uvula is midline and elevates symmetrically with the soft palate. Sternocleidomastoid and trapezius muscles have normal and symmetrical strength. Other cranial nerves are intact. There is a bilateral plantar flexion response. Neck is soft and supple. Musculoskeletal: No obvious deformities to extremities. Muscle testing reveals normal bulk and tone overall without rigidity, spasticity, fasciculations, or atrophy. Moves all four extremities well, with mild left side weakness. Heart: Regular rate rhythm Respiratory: clear, nonlabored breathing. Skin: warm, dry. No cyanosis or erythema. (Lucia Galindo) General: Sitting up in chair in no acute distress HEENT: Normocephalic. Nonicteric sclera. No nasal drainage. Neuro: Alert, awake and oriented to time, place and person. Speech is fluent. Follows commands without difficulties. Cranial nerve: pupils equal, round, and reactive to light. Extra-ocular movements are intact. Facial motor are normal and symmetrical. Gross hearing is intact, bilaterally. The uvula is midline and elevates symmetrically with the soft palate. Sternocleidomastoid and trapezius muscles have normal and symmetrical strength. Other cranial nerves are intact. There is a bilateral plantar flexion response. Neck is soft and supple. Musculoskeletal: No obvious deformities to extremities. Muscle testing reveals normal bulk and tone overall without rigidity, spasticity, fasciculations, or atrophy. Moves all four extremities well, with mild left side weakness. Heart: Regular rate rhythm Respiratory: clear, nonlabored breathing. Skin: warm, dry. No cyanosis or erythema. (Delmer Berrios MD) Medications Current Medications Current Medications Medications (Trade) Dose Ordered Sig/Mallory Route PRN Reason Start Time Stop Time Status Last Admin Dose Admin Sodium Chloride (NS Flush) 2 ml UNSCH PRN IV FLUSH FLUSH AFTER USING IV ACCESS 07/11/17 16:00 Sodium Chloride (NS Flush) 2 ml BID IV FLUSH 07/11/17 21:00 07/13/17 08:57 Acetaminophen (Tylenol) 650 mg Q6H PRN PO FEVER >101F 07/11/17 16:00 Acetaminophen/ Hydrocodone Bitart ([place] 5-325 Mg) 1 tab Q4H PRN PO PAIN SCALE 1 TO 5 07/11/17 16:00 Morphine Sulfate (Morphine Inj) 2 mg Q2H PRN IV PUSH PAIN SCALE 6 TO 10 07/11/17 16:00 Ondansetron HCl (Zofran Inj) 4 mg Q6H PRN IV PUSH NAUSEA OR VOMITING 07/11/17 16:00 Albuterol Sulfate (Albuterol Neb) 2.5 mg Q2HR NEB PRN INH SOB/WHEEZING 07/11/17 16:00 Miscellaneous Information ([facility] Nursing Information) 1 Q361D XX 07/11/17 16:00 Chlorhexidine Gluconate (Chlorhexidine 2% Cloth) 3 pack Taper DAILY@04 TOP 07/12/17 04:00 07/08/18 03:59 07/13/17 04:00 Chlorhexidine Gluconate (Chlorhexidine 2% Cloth) 3 pack UNSCH PRN TOP HYGIENIC CARE 07/11/17 16:00 Senna/Docusate Sodium (Ivana-Colace) 1 tab BID PO 07/11/17 21:00 07/13/17 08:57 Magnesium Hydroxide (Milk Of Magnesia Liq) 30 ml Q12H PRN PO Mild constipation 07/11/17 16:00 Sennosides (Senokot) 17.2 mg Q12H PRN PO Moderate constipation 07/11/17 16:00 Bisacodyl (Dulcolax Supp) 10 mg DAILY PRN RECTAL SEVERE CONSITIPATION 07/11/17 16:00 Lactulose (Lactulose Liq) 30 ml DAILY PRN PO SEVERE CONSITIPATION 07/11/17 16:00 Labetalol HCl (Trandate Inj) 5 mg Q1HR PRN IV PUSH SBP>150, DBP>90, HR>65 07/11/17 16:00 Nicardipine HCl 25 mg/Sodium Chloride 260 ml @ 52 mls/hr TITRATE PRN IV Blood pressure management 07/11/17 16:00 Atorvastatin Calcium (Lipitor) 40 mg HS PO 07/11/17 21:00 07/12/17 21:06 Lisinopril (Prinivil) 10 mg DAILY PO 07/12/17 09:00 07/13/17 08:57 Enalaprilat (Vasotec Inj) 2.5 mg Q6H PRN IV PUSH SBP>150, DBP>90 07/11/17 16:00 07/11/17 20:10 Levetriacetam 100 ml @ 400 mls/hr Q12HR IV 07/11/17 21:00 07/18/17 20:59 07/13/17 08:57 Pantoprazole Sodium (Protonix) 40 mg DAILY PO 07/12/17 09:00 07/13/17 08:57 (Lucia Galindo) Current Medications Current Medications Iodixanol (VISIPAQUE 320 INJ (Rad CT)) 97 ml STK-MED ONCE IVCONTRAST Last administered on 07/11/17at 15:30; Start 07/11/17 at 15:30; Stop 07/11/17 at 15:33; Status DC Sodium Chloride 1,000 ml @ 84 mls/hr [id number] IV Last administered on 07/12/17at 04:38; Start 07/11/17 at 15:54; Stop 07/12/17 at 06:38; Status DC Sodium Chloride (NS Flush) 2 ml UNSCH PRN IV FLUSH FLUSH AFTER USING IV ACCESS ; Start 07/11/17 at 16:00 Sodium Chloride (NS Flush) 2 ml BID IV FLUSH Last administered on 07/14/17at 09: 06; Start 07/11/17 at 21:00 Acetaminophen (Tylenol) 650 mg Q6H PRN PO FEVER >101F; Start 07/11/17 at 16:00 Acetaminophen/ Hydrocodone Bitart ([place] 5-325 Mg) 1 tab Q4H PRN PO PAIN SCALE 1 TO 5 Last administered on 07/14/17at 09:06; Start 07/11/17 at 16:00 Morphine Sulfate (Morphine Inj) 2 mg Q2H PRN IV PUSH PAIN SCALE 6 TO 10; Start 07/11/17 at 16:00 Pantoprazole Sodium (Protonix Inj) 40 mg DAILY IV PUSH ; Start 07/12/17 at 09:00 ; Stop 07/12/17 at 09:00; Status DC Ondansetron HCl (Zofran Inj) 4 mg Q6H PRN IV PUSH NAUSEA OR VOMITING; Start 07/11/17 at 16:00 Albuterol Sulfate (Albuterol Neb) 2.5 mg Q2HR NEB PRN INH SOB/WHEEZING; Start 07/11/17 at 16:00 Miscellaneous Information ([facility] Nursing Information) 1 Q361D XX ; Start 07/11/17 at 16:00 Chlorhexidine Gluconate (Chlorhexidine 2% Cloth) 3 pack Taper DAILY@04 TOP Last administered on 07/14/17at 03:35; Start 07/12/17 at 04:00; Stop 07/08/18 at 03 :59 Chlorhexidine Gluconate (Chlorhexidine 2% Cloth) 3 pack UNSCH PRN TOP HYGIENIC CARE; Start 07/11/17 at 16:00 Senna/Docusate Sodium (Ivana-Colace) 1 tab BID PO Last administered on 07/13/17at 08:57; Start 07/11/17 at 21:00 Magnesium Hydroxide (Milk Of Magnesia Liq) 30 ml Q12H PRN PO Mild constipation ; Start 07/11/17 at 16:00 Sennosides (Senokot) 17.2 mg Q12H PRN PO Moderate constipation; Start 07/11/17 at 16:00 Bisacodyl (Dulcolax Supp) 10 mg DAILY PRN RECTAL SEVERE CONSITIPATION; Start at 16:00 Lactulose (Lactulose Liq) 30 ml DAILY PRN PO SEVERE CONSITIPATION; Start at 16:00 Labetalol HCl (Trandate Inj) 5 mg Q1HR PRN IV PUSH SBP>150, DBP>90, HR>65; Start 07/11/17 at 16:00 Nicardipine HCl 25 mg/Sodium Chloride 260 ml @ 52 mls/hr TITRATE PRN IV Blood pressure management; Start 07/11/17 at 16:00 Atorvastatin Calcium (Lipitor) 40 mg HS PO Last administered on 07/13/17at 20:46 ; Start 07/11/17 at 21:00 Lisinopril (Prinivil) 10 mg DAILY PO Last administered on 07/14/17at 09:05; Start 07/12/17 at 09:00 Enalaprilat (Vasotec Inj) 2.5 mg Q6H PRN IV PUSH SBP>150, DBP>90 Last administered on 07/11/17at 20:10; Start 07/11/17 at 16:00 Levetriacetam 100 ml @ 400 mls/hr Q12HR IV Last administered on 07/14/17at 09:06 ; Start 07/11/17 at 21:00; Stop 07/18/17 at 20:59 Pantoprazole Sodium (Protonix) 40 mg DAILY PO Last administered on 07/14/17at 09: 06; Start 07/12/17 at 09:00 (Delmer Berrios MD) Medical Decision Making MDM Remarks 52-year-old female right thalamic hemorrhage, stable on follow up CT Brain left side weakness improving (Lucia Galindo) Plan Plan Remarks cont nonsurgical management, cont neuro checks cont blood pressure control seizure prophylaxis Protonix for gi prophylaxis nonchemical dvt prophylaxis in view of acute ICH PT, OT (Lucia Galindo) Attending Statement As above Continue neuro checks. Continue strict blood pressure control Pulmonary. Continue aggressive pulmonary toilette, nasotracheal suction, and breathing treatments with nebulizers. Renal. monitor closely urine output, BUN and creatinine Endocrine. Monitor serial Acu checks and SSI as needed in detail ID monitor for signs of infection Protonix for stress ulcer prophylaxis Minh hose and SCD's for DVT prophylaxis. The exam, history, and the medical decision-making described in the above note were completed with the assistance of the mid-level provider. I reviewed and agree with the findings presented. I attest that I had a [id number] encounter with the patient on the same day, and personally performed and documented my assessment and findings in the medical record. (Delmer Berrios MD) Lucia Galindo Jul 13, 2017 10:00 Delmer Berrios MD Jul 14, 2017 14:38
--- NOTE | 2017-07-13 12:41 | HHI.PR ---
Subjective Remarks "I am doing very well " Patient sitting on the chair she is telling me that she is doing well She does not want to be transferred to [facility] floor Objective Vitals Vital Signs Date Time Temp Pulse Resp B/P (MAP) Pulse Ox O2 Delivery O2 Flow Rate FiO2 07/13/17 06:00 68 07/13/17 04:00 98.0 66 17 134/61 (85) 98 07/13/17 04:00 66 07/13/17 02:00 65 07/13/17 00:00 98.2 71 16 122/73 (89) 98 07/13/17 00:00 71 07/12/17 22:00 66 07/12/17 20:00 98.5 70 18 113/79 (90) 98 07/12/17 20:00 74 07/12/17 19:00 100 Room Air 07/12/17 18:00 72 07/12/17 16:00 69 07/12/17 16:00 98.4 69 27 115/56 (75) 100 07/12/17 14:00 65 I/O 07/12/17 07/12/17 07/12/17 07/13/17 07/13/17 07/13/17 07:00 15:00 23:00 07:00 15:00 23:00 Intake Total 1000 ml 1480 ml 420 ml Output Total 900 ml 0 ml Balance 100 ml 1480 ml 420 ml Intake Oral 880 ml 420 ml IV Total 1000 ml 600 ml Output Urine Total 900 ml Stool Total 0 ml # Voids 3 2 Result Diagram: 07/13/17 0514 07/13/17 0514 Objective Remarks GENERAL: This is a well-nourished, well-developed patient, in no apparent distress. SKIN: No rashes, warm and dry HEAD: Atraumatic. Normocephalic. EYES: Pupils equal round and reactive. Extraocular motions intact. No scleral icterus. ENT: Nose without bleeding, or drainage, Airway patent. NECK: Trachea midline. Supple CARDIOVASCULAR: Regular rate and rhythm without murmurs, gallops, or rubs. RESPIRATORY: Fair air entry bilaterally. No wheezes, rales, or rhonchi. GASTROINTESTINAL: Abdomen soft, non-tender, nondistended. Positive bowel sounds MUSCULOSKELETAL: Extremities without clubbing, cyanosis, or edema. Pedal pulses appreciated NEUROLOGICAL: Awake and alert oriented 3, Cranial nerves II through XII intact moves all extremity. Normal speech.no focal neurological deficit A/P Assessment and Plan 52-year-old female presents with a new onset of left-sided weakness and numbness. She has no other concurrent complaints at this time. She has had 2 prior strokes but is not on any blood thinners because she has had prior bleeding in the brain. She denies any modifying factors. CT head obtained in the emergency department showed acute right thalamic bleed with no measurable midline shift. 07/12: Afebrile. No acute issues overnight. Currently resting in bed in no acute distress. Repeat brain CT this a.m. reveals stable right thalamic hemorrhage. 07/13: Stable afebrile, neurosurgery following, continue neuro check, PT OT plan for discharge when cleared by neurosurgery A/P: Acute right thalamic intracerebral hemorrhage History of right frontoparietal craniotomy with history of aneurysmal [address] brain 07/12 revealed stable tubes centimeter right thalamic intraparenchymal hemorrhage. Old history of right frontoparietal craniotomy with aneurysmal clipping noted. CTA brain/neck revealed no aneurysms Evaluated by neurosurgery. No intervention planned at this time Levetiracetam 500 mg IV twice daily for 7 total days for seizure prophylaxis Keep systolic blood pressure less than 140 Neurochecks CV: Essential hypertension Hyperlipidemia Continue lisinopril 10 mg daily for essential hypertension As needed labetalol and enalapril and nicardipine drip keep systolic blood pressure less than 140 Continue atorvastatin 40 mg daily for dyslipidemia Discontinue normal saline at 84 cc an hour Resp: Left lung apex pleural thickening Nasal cannula to maintain saturations greater than or equal to 92% Incentive spirometry while awake Albuterol aerosols every 2 hours as needed dyspnea Recommend follow-up CT thorax in 3 months to follow-up on left apex pleural thickening GI: Gastroesophageal reflux disease Advance diet per neurosurgery Currently on pantoprazole 40 mg daily. Switch to p.o. On ranitidine 150 mg daily at home for GERD Docusate sodium/senna 1 tablet twice daily for bowel regimen : No indication for House catheter Endo: Sliding scale insulin if indicated to maintain euglycemia Renal: Creatinine currently within normal limits Monitor urine output Accurate I's and O's Heme: Microcytic anemia Monitor CBC daily. Follow trend Hemoccult stool Iron studies/transferrin/ferritin/reticulocyte count and peripheral smear pending ID: Monitor for signs and symptomatology of infection FEN: Replace electrolytes as clinically indicated MSK: PT evaluate and treat Access -utilize peripheral IV. Central line if indicated Prophylaxis -GI -pantoprazole -DVT -SCD/pharmacological prophylaxis when okay with neurosurgery Paola Romero MD Jul 13, 2017 12:41
[2017-07-13] MEDS: ATORVASTATIN 40 MG TAB PO SCH (20:46)
[2017-07-14] VITALS (12 sets, daily range): BP systolic 99–147; BP diastolic 8–87; PULSE 58–74; RESP 15–24; TEMP 98.3–98.7; O2SAT 95–99
[2017-07-14] MEDS: CHLORHEXIDINE GLUCONATE 2 % 1 PACK (2 CLOTHS) TOP SCH (03:35)
[2017-07-14] MEDS: DOCUSATE SODIUM 50 MG/SENNA 8.6 MG TAB PO SCH ×2 (09:00→20:15)
[2017-07-14] MEDS: LISINOPRIL 10 MG TAB PO SCH (09:05)
[2017-07-14] MEDS: SODIUM CHLORIDE 0.9% FLUSH 10 ML FLUSH IV FLUSH SCH ×2 (09:06→20:14)
[2017-07-14] MEDS: PANTOPRAZOLE SOD 40 MG DELAYED RELEASE TAB PO SCH (09:06)
[2017-07-14] MEDS: levETIRAcetam INJ 100 ML IV SCH ×2 (09:06→20:14)
[2017-07-14] MEDS: ACETAMINOPHEN/HYDROcodone 325 MG/5 MG TAB PO PRN ×2 (09:06→16:48)
--- NOTE | 2017-07-14 13:46 | HHI.NSPN ---
Note Status Status: Progress Note Interval History Interval History This is a 52-year-old female patient with previous history of craniotomy for aneurysm clipping. The patient reports that she had been doing well, when around 2 o'clock she noted significant weakness of the left side. At that time, she denies having any headaches or any nausea or vomiting. She went to [place] for evaluation. CT scan was performed, which was abnormal and, because of this, the patient eventually was transferred. The patient reports that presently she is doing well. She feels that her weakness on the left side is improving. She denies any numbness at the present time. She denies any headaches or any problems with nausea and vomiting. 07/13: feels well, denies headaches, reports left side feels stronger, denies nausea, vomiting, seizures. wants to go home 07/14: reports left side weakness is much better, denies headaches, vomiting, no new neurological complaints. Labs, Micro, & Vital Signs Results Date Time Temp Pulse Resp B/P (MAP) Pulse Ox O2 Delivery O2 Flow Rate FiO2 07/14/17 06:00 68 07/14/17 06:00 98.7 60 15 99/56 (70) 99 07/14/17 04:00 60 07/14/17 02:00 58 07/14/17 00:00 74 07/14/17 00:00 98.4 74 24 136/78 (97) 99 07/13/17 22:00 66 07/13/17 20:00 78 07/13/17 20:00 98.7 78 22 127/77 (94) 98 07/13/17 19:00 100 Room Air 07/13/17 18:00 62 07/13/17 16:00 65 07/13/17 16:00 98.0 66 27 120/74 (89) 99 07/13/17 14:00 65 Constitutional Vital Signs Date Time Temp Pulse Resp B/P (MAP) Pulse Ox O2 Delivery O2 Flow Rate FiO2 07/14/17 06:00 68 07/14/17 06:00 98.7 60 15 99/56 (70) 99 07/14/17 04:00 60 07/14/17 02:00 58 07/14/17 00:00 74 07/14/17 00:00 98.4 74 24 136/78 (97) 99 07/13/17 22:00 66 07/13/17 20:00 78 07/13/17 20:00 98.7 78 22 127/77 (94) 98 07/13/17 19:00 100 Room Air 07/13/17 18:00 62 07/13/17 16:00 65 07/13/17 16:00 98.0 66 27 120/74 (89) 99 07/13/17 14:00 65 Review of Systems Constitutional: DENIES: Fever, Chills Respiratory: DENIES: Shortness of breath Cardiovascular: DENIES: Chest pain Neurologic: DENIES: Headache, Localized weakness (reports improved) Physical Exam General: Sitting up in chair in no acute distress HEENT: Normocephalic. Nonicteric sclera. No nasal drainage. Neuro: Alert, awake and oriented to time, place and person. Speech is fluent. Follows commands without difficulties. Cranial nerve: pupils equal, round, and reactive to light. Extra-ocular movements are intact. Facial motor are normal and symmetrical. Gross hearing is intact, bilaterally. The uvula is midline and elevates symmetrically with the soft palate. Sternocleidomastoid and trapezius muscles have normal and symmetrical strength. Other cranial nerves are intact. There is a bilateral plantar flexion response. Neck is soft and supple. Musculoskeletal: No obvious deformities to extremities. Muscle testing reveals normal bulk and tone overall without rigidity, spasticity, fasciculations, or atrophy. Moves all four extremities well symmetrically. Heart: Regular rate rhythm Respiratory: clear, nonlabored breathing. Skin: warm, dry. No cyanosis or erythema. Medications Current Medications Current Medications Medications (Trade) Dose Ordered Sig/Mallory Route PRN Reason Start Time Stop Time Status Last Admin Dose Admin Sodium Chloride (NS Flush) 2 ml UNSCH PRN IV FLUSH FLUSH AFTER USING IV ACCESS 07/11/17 16:00 Sodium Chloride (NS Flush) 2 ml BID IV FLUSH 07/11/17 21:00 07/14/17 09:06 Acetaminophen (Tylenol) 650 mg Q6H PRN PO FEVER >101F 07/11/17 16:00 Acetaminophen/ Hydrocodone Bitart ([place] 5-325 Mg) 1 tab Q4H PRN PO PAIN SCALE 1 TO 5 07/11/17 16:00 07/14/17 09:06 Morphine Sulfate (Morphine Inj) 2 mg Q2H PRN IV PUSH PAIN SCALE 6 TO 10 07/11/17 16:00 Ondansetron HCl (Zofran Inj) 4 mg Q6H PRN IV PUSH NAUSEA OR VOMITING 07/11/17 16:00 Albuterol Sulfate (Albuterol Neb) 2.5 mg Q2HR NEB PRN INH SOB/WHEEZING 07/11/17 16:00 Miscellaneous Information ([facility] Nursing Information) 1 Q361D XX 07/11/17 16:00 Chlorhexidine Gluconate (Chlorhexidine 2% Cloth) 3 pack Taper DAILY@04 TOP 07/12/17 04:00 07/08/18 03:59 07/14/17 03:35 Chlorhexidine Gluconate (Chlorhexidine 2% Cloth) 3 pack UNSCH PRN TOP HYGIENIC CARE 07/11/17 16:00 Senna/Docusate Sodium (Ivana-Colace) 1 tab BID PO 07/11/17 21:00 07/13/17 08:57 Magnesium Hydroxide (Milk Of Magnesia Liq) 30 ml Q12H PRN PO Mild constipation 07/11/17 16:00 Sennosides (Senokot) 17.2 mg Q12H PRN PO Moderate constipation 07/11/17 16:00 Bisacodyl (Dulcolax Supp) 10 mg DAILY PRN RECTAL SEVERE CONSITIPATION 07/11/17 16:00 Lactulose (Lactulose Liq) 30 ml DAILY PRN PO SEVERE CONSITIPATION 07/11/17 16:00 Labetalol HCl (Trandate Inj) 5 mg Q1HR PRN IV PUSH SBP>150, DBP>90, HR>65 07/11/17 16:00 Nicardipine HCl 25 mg/Sodium Chloride 260 ml @ 52 mls/hr TITRATE PRN IV Blood pressure management 07/11/17 16:00 Atorvastatin Calcium (Lipitor) 40 mg HS PO 07/11/17 21:00 07/13/17 20:46 Lisinopril (Prinivil) 10 mg DAILY PO 07/12/17 09:00 07/14/17 09:05 Enalaprilat (Vasotec Inj) 2.5 mg Q6H PRN IV PUSH SBP>150, DBP>90 07/11/17 16:00 07/11/17 20:10 Levetriacetam 100 ml @ 400 mls/hr Q12HR IV 07/11/17 21:00 07/18/17 20:59 07/14/17 09:06 Pantoprazole Sodium (Protonix) 40 mg DAILY PO 07/12/17 09:00 07/14/17 09:06 Medical Decision Making MDM Remarks 52-year-old female right thalamic hemorrhage, stable on follow up CT Brain left side weakness improving Plan Plan Remarks cont nonsurgical management, cont neuro checks cont blood pressure control, defer to medical physician seizure prophylaxis Protonix for gi prophylaxis nonchemical dvt prophylaxis in view of acute ICH PT, OT clear to transfer out of ICU Lucia Galindo Jul 14, 2017 13:46
--- NOTE | 2017-07-14 17:11 | HHI.PR ---
Subjective Remarks Afebrile overnight No acute event Resting comfortably in bed Objective Vitals Vital Signs Date Time Temp Pulse Resp B/P (MAP) Pulse Ox O2 Delivery O2 Flow Rate FiO2 07/14/17 14:00 68 07/14/17 12:00 68 07/14/17 12:00 98.3 74 15 127/8 (47) 99 07/14/17 10:00 68 07/14/17 08:00 98.7 60 15 134/63 (86) 99 07/14/17 08:00 68 07/14/17 07:00 100 Room Air 07/14/17 06:00 68 07/14/17 06:00 98.7 60 15 99/56 (70) 99 07/14/17 04:00 60 07/14/17 02:00 58 07/14/17 00:00 74 07/14/17 00:00 98.4 74 24 136/78 (97) 99 07/13/17 22:00 66 07/13/17 20:00 78 07/13/17 20:00 98.7 78 22 127/77 (94) 98 07/13/17 19:00 100 Room Air 07/13/17 18:00 62 I/O 07/13/17 07/13/17 07/13/17 07/14/17 07/14/17 07/14/17 07:00 15:00 23:00 07:00 15:00 23:00 Intake Total 420 ml 760 ml 120 ml Output Total 0 ml 1 ml 0 ml Balance 420 ml 759 ml 120 ml Intake Oral 420 ml 660 ml 120 ml IV Total 100 ml Stool Total 0 ml 1 ml 0 ml # Voids 2 3 3 Result Diagram: 07/13/17 0514 07/13/17 0514 Objective Remarks GENERAL: This is a well-nourished, well-developed patient, in no apparent distress. SKIN: No rashes, warm and dry HEAD: Atraumatic. Normocephalic. EYES: Pupils equal round and reactive. Extraocular motions intact. No scleral icterus. ENT: Nose without bleeding, or drainage, Airway patent. NECK: Trachea midline. Supple CARDIOVASCULAR: Regular rate and rhythm without murmurs, gallops, or rubs. RESPIRATORY: Fair air entry bilaterally. No wheezes, rales, or rhonchi. GASTROINTESTINAL: Abdomen soft, non-tender, nondistended. Positive bowel sounds MUSCULOSKELETAL: Extremities without clubbing, cyanosis, or edema. Pedal pulses appreciated NEUROLOGICAL: Awake and alert oriented 3, Cranial nerves II through XII intact moves all extremity. Normal speech.no focal neurological deficit A/P Assessment and Plan 52-year-old female presents with a new onset of left-sided weakness and numbness. She has no other concurrent complaints at this time. She has had 2 prior strokes but is not on any blood thinners because she has had prior bleeding in the brain. She denies any modifying factors. CT head obtained in the emergency department showed acute right thalamic bleed with no measurable midline shift. 07/12: Afebrile. No acute issues overnight. Currently resting in bed in no acute distress. Repeat brain CT this a.m. reveals stable right thalamic hemorrhage. 07/13: Stable afebrile, neurosurgery following, continue neuro check, PT OT plan for discharge when cleared by neurosurgery 07/14: Stable, continue monitoring neuro check, neurosurgery following, continue PT OT A/P: Acute right thalamic intracerebral hemorrhage History of right frontoparietal craniotomy with history of aneurysmal [address] brain 07/12 revealed stable tubes centimeter right thalamic intraparenchymal hemorrhage. Old history of right frontoparietal craniotomy with aneurysmal clipping noted. CTA brain/neck revealed no aneurysms Evaluated by neurosurgery. No intervention planned at this time Levetiracetam 500 mg IV twice daily for 7 total days for seizure prophylaxis Keep systolic blood pressure less than 140 Neurochecks CV: Essential hypertension Hyperlipidemia Continue lisinopril 10 mg daily for essential hypertension As needed labetalol and enalapril and nicardipine drip keep systolic blood pressure less than 140 Continue atorvastatin 40 mg daily for dyslipidemia Discontinue normal saline at 84 cc an hour Resp: Left lung apex pleural thickening Nasal cannula to maintain saturations greater than or equal to 92% Incentive spirometry while awake Albuterol aerosols every 2 hours as needed dyspnea Recommend follow-up CT thorax in 3 months to follow-up on left apex pleural thickening GI: Gastroesophageal reflux disease Advance diet per neurosurgery Currently on pantoprazole 40 mg daily. Switch to p.o. On ranitidine 150 mg daily at home for GERD Docusate sodium/senna 1 tablet twice daily for bowel regimen : No indication for House catheter Endo: Sliding scale insulin if indicated to maintain euglycemia Renal: Creatinine currently within normal limits Monitor urine output Accurate I's and O's Heme: Microcytic anemia Monitor CBC daily. Follow trend Hemoccult stool Iron studies/transferrin/ferritin/reticulocyte count and peripheral smear pending ID: Monitor for signs and symptomatology of infection FEN: Replace electrolytes as clinically indicated MSK: PT evaluate and treat Access -utilize peripheral IV. Central line if indicated Prophylaxis -GI -pantoprazole -DVT -SCD/pharmacological prophylaxis when okay with neurosurgery Paola Romero MD Jul 14, 2017 17:11
[2017-07-14] MEDS: ATORVASTATIN 40 MG TAB PO SCH (20:14)
[2017-07-15] VITALS: BP_SYST 116; BP_SYST 147; BP_DIAS 70; BP_DIAS 87; PULSE 56; PULSE 72; RESP 15; RESP 16; TEMP 98.3; TEMP 98.6; O2SAT 100; O2SAT 98
[2017-07-15] MEDS: CHLORHEXIDINE GLUCONATE 2 % 1 PACK (2 CLOTHS) TOP SCH (03:34)
[2017-07-15 04:00] VITALS: BP 119/75; PULSE 54; RESP 16; TEMP 98.6; O2SAT 100
[2017-07-15 04:03] VITALS: O2SAT 100
[2017-07-15] MEDS: DOCUSATE SODIUM 50 MG/SENNA 8.6 MG TAB PO SCH (07:50)
[2017-07-15] MEDS: levETIRAcetam INJ 100 ML IV SCH (07:50)
[2017-07-15] MEDS: SODIUM CHLORIDE 0.9% FLUSH 10 ML FLUSH IV FLUSH SCH (07:50)
[2017-07-15] MEDS: LISINOPRIL 10 MG TAB PO SCH (07:50)
[2017-07-15] MEDS: PANTOPRAZOLE SOD 40 MG DELAYED RELEASE TAB PO SCH (07:50)
[2017-07-15 08:00] VITALS: BP 130/77; PULSE 56; RESP 14; TEMP 98.1; O2SAT 100
--- NOTE | 2017-07-15 09:38 | HHI.NSPN ---
Note Status Status: Progress Note Interval History Interval History This is a 52-year-old female patient with previous history of craniotomy for aneurysm clipping. The patient reports that she had been doing well, when around 2 o'clock she noted significant weakness of the left side. At that time, she denies having any headaches or any nausea or vomiting. She went to [place] for evaluation. CT scan was performed, which was abnormal and, because of this, the patient eventually was transferred. The patient reports that presently she is doing well. She feels that her weakness on the left side is improving. She denies any numbness at the present time. She denies any headaches or any problems with nausea and vomiting. 07/13: feels well, denies headaches, reports left side feels stronger, denies nausea, vomiting, seizures. wants to go home 07/14: reports left side weakness is much better, denies headaches, vomiting, no new neurological complaints. 07/15: neuro remains stable overnight, bp controlled. Labs, Micro, & Vital Signs Results Date Time Temp Pulse Resp B/P (MAP) Pulse Ox O2 Delivery O2 Flow Rate FiO2 07/15/17 08:00 56 07/15/17 08:00 98.1 56 14 130/77 (94) 100 07/15/17 07:00 100 Room Air 07/15/17 04:03 100 07/15/17 04:00 54 07/15/17 04:00 98.6 54 16 119/75 (90) 100 07/15/17 00:00 56 07/15/17 00:00 98.3 56 16 116/70 (85) 100 07/14/17 20:07 95 07/14/17 20:00 72 07/14/17 20:00 98.6 72 15 147/87 (107) 98 07/14/17 19:00 100 Room Air 07/14/17 18:00 68 07/14/17 17:48 20 07/14/17 16:00 68 07/14/17 16:00 68 20 125/79 (94) 99 07/14/17 14:00 68 07/14/17 12:00 68 07/14/17 12:00 98.3 74 15 127/78 (94) 99 07/14/17 10:00 68 Constitutional Vital Signs Date Time Temp Pulse Resp B/P (MAP) Pulse Ox O2 Delivery O2 Flow Rate FiO2 07/15/17 08:00 56 07/15/17 08:00 98.1 56 14 130/77 (94) 100 07/15/17 07:00 100 Room Air 07/15/17 04:03 100 07/15/17 04:00 54 07/15/17 04:00 98.6 54 16 119/75 (90) 100 07/15/17 00:00 56 07/15/17 00:00 98.3 56 16 116/70 (85) 100 07/14/17 20:07 95 07/14/17 20:00 72 07/14/17 20:00 98.6 72 15 147/87 (107) 98 07/14/17 19:00 100 Room Air 07/14/17 18:00 68 07/14/17 17:48 20 07/14/17 16:00 68 07/14/17 16:00 68 20 125/79 (94) 99 07/14/17 14:00 68 07/14/17 12:00 68 07/14/17 12:00 98.3 74 15 127/78 (94) 99 07/14/17 10:00 68 Review of Systems Constitutional: DENIES: Fever, Chills Respiratory: DENIES: Apneas, Shortness of breath Cardiovascular: DENIES: Chest pain Gastrointestinal: DENIES: Abdominal pain Musculoskeletal: DENIES: Neck pain Neurologic: DENIES: Headache, Localized weakness, Paresthesias, Seizures, Speech Problems Physical Exam General: well nourished female in no acute distress HEENT: Normocephalic. Nonicteric sclera. No nasal drainage. Neuro: Alert, awake and oriented to time, place and person. Speech is fluent. Follows commands without difficulties. Cranial nerve: pupils equal, round, and reactive to light. Extra-ocular movements are intact. Facial motor are normal and symmetrical. Other cranial nerves are intact. There is a bilateral plantar flexion response. Neck is soft and supple. Musculoskeletal: No obvious deformities to extremities. Moves all four extremities symmetrically. Heart: Regular rate rhythm Respiratory: clear, nonlabored breathing. Skin: warm, dry. No cyanosis or erythema. Medications Current Medications Current Medications Medications (Trade) Dose Ordered Sig/Mallory Route PRN Reason Start Time Stop Time Status Last Admin Dose Admin Sodium Chloride (NS Flush) 2 ml UNSCH PRN IV FLUSH FLUSH AFTER USING IV ACCESS 07/11/17 16:00 Sodium Chloride (NS Flush) 2 ml BID IV FLUSH 07/11/17 21:00 07/15/17 07:50 Acetaminophen (Tylenol) 650 mg Q6H PRN PO FEVER >101F 07/11/17 16:00 Acetaminophen/ Hydrocodone Bitart ([place] 5-325 Mg) 1 tab Q4H PRN PO PAIN SCALE 1 TO 5 07/11/17 16:00 07/14/17 16:48 Morphine Sulfate (Morphine Inj) 2 mg Q2H PRN IV PUSH PAIN SCALE 6 TO 10 07/11/17 16:00 Ondansetron HCl (Zofran Inj) 4 mg Q6H PRN IV PUSH NAUSEA OR VOMITING 07/11/17 16:00 Albuterol Sulfate (Albuterol Neb) 2.5 mg Q2HR NEB PRN INH SOB/WHEEZING 07/11/17 16:00 Miscellaneous Information ([facility] Nursing Information) 1 [id number] XX 07/11/17 16:00 Chlorhexidine Gluconate (Chlorhexidine 2% Cloth) 3 pack Taper DAILY@04 TOP 07/12/17 04:00 07/08/18 03:59 07/15/17 03:34 Chlorhexidine Gluconate (Chlorhexidine 2% Cloth) 3 pack UNSCH PRN TOP HYGIENIC CARE 07/11/17 16:00 Senna/Docusate Sodium (Ivana-Colace) 1 tab BID PO 07/11/17 21:00 07/15/17 07:50 Magnesium Hydroxide (Milk Of Magnesia Liq) 30 ml Q12H PRN PO Mild constipation 07/11/17 16:00 Sennosides (Senokot) 17.2 mg Q12H PRN PO Moderate constipation 07/11/17 16:00 Bisacodyl (Dulcolax Supp) 10 mg DAILY PRN RECTAL SEVERE CONSITIPATION 07/11/17 16:00 Lactulose (Lactulose Liq) 30 ml DAILY PRN PO SEVERE CONSITIPATION 07/11/17 16:00 Labetalol HCl (Trandate Inj) 5 mg Q1HR PRN IV PUSH SBP>150, DBP>90, HR>65 07/11/17 16:00 Nicardipine HCl 25 mg/Sodium Chloride 260 ml @ 52 mls/hr TITRATE PRN IV Blood pressure management 07/11/17 16:00 Atorvastatin Calcium (Lipitor) 40 mg HS PO 07/11/17 21:00 07/14/17 20:14 Lisinopril (Prinivil) 10 mg DAILY PO 07/12/17 09:00 07/15/17 07:50 Enalaprilat (Vasotec Inj) 2.5 mg Q6H PRN IV PUSH SBP>150, DBP>90 07/11/17 16:00 07/11/17 20:10 Levetriacetam 100 ml @ 400 mls/hr Q12HR IV 07/11/17 21:00 07/18/17 20:59 07/15/17 07:50 Pantoprazole Sodium (Protonix) 40 mg DAILY PO 07/12/17 09:00 07/15/17 07:50 Medical Decision Making MDM Remarks 52-year-old female right thalamic hemorrhage, stable on follow up CT Brain left side weakness improving Plan Plan Remarks cont nonsurgical management, maintain blood pressure control, defer to medical physician Protonix for gi prophylaxis nonchemical dvt prophylaxis in view of acute ICH PT, OT neuro stable clear for discharge from [facility] standpoint Lucia Galindo Jul 15, 2017 09:38
[2017-07-15] MEDS ORDERED: LEVE250T5 PO (10:14)
--- NOTE | 2017-07-15 11:00 | HHI.DS ---
Discharge Summary Admission Date Jul 11, 2017 at 15:47 Discharge Date: Jul 15, 2017 Admitting Diagnosis Intracranial bleed (1) Thalamic hemorrhage ICD Code: I61.0 - Nontraumatic intracerebral hemorrhage in hemisphere, subcortical Status: Acute Procedures see below Brief History - From Admission 52-year-old female presents with a new onset of left-sided weakness and numbness. She has no other concurrent complaints at this time. She has had 2 prior strokes but is not on any blood thinners because she has had prior bleeding in the brain. She denies any modifying factors. CT head obtained in the emergency department showed acute right thalamic bleed with no measurable midline shift. CBC/BMP: 07/13/17 0514 07/13/17 0514 Significant Findings Laboratory Tests Test 07/13/17 05:14 Red Blood Count 5.49 MIL/MM3 (4.00-5.30) Hemoglobin 11.1 GM/DL (11.6-15.3) Mean Corpuscular Volume 63.8 FL (80.0-100.0) Mean Corpuscular Hemoglobin 20.2 PG (27.0-34.0) Mean Corpuscular Hemoglobin Concent 31.7 % (32.0-36.0) Calcium Level 8.4 MG/DL (8.5-10.1) Chloride Level 108 MEQ/L (98-107) Estimat Glomerular Filtration Rate 76 ML/MIN (>89) PE at Discharge GENERAL: This is a well-nourished, well-developed patient, in no apparent distress. SKIN: No rashes, warm and dry HEAD: Atraumatic. Normocephalic. EYES: Pupils equal round and reactive. Extraocular motions intact. No scleral icterus. ENT: Nose without bleeding, or drainage, Airway patent. NECK: Trachea midline. Supple CARDIOVASCULAR: Regular rate and rhythm without murmurs, gallops, or rubs. RESPIRATORY: Fair air entry bilaterally. No wheezes, rales, or rhonchi. GASTROINTESTINAL: Abdomen soft, non-tender, nondistended. Positive bowel sounds MUSCULOSKELETAL: Extremities without clubbing, cyanosis, or edema. Pedal pulses appreciated NEUROLOGICAL: Awake and alert oriented 3, Cranial nerves II through XII intact moves all extremity. Normal speech.no focal neurological deficit Hospital Course 52 years old female, neurosurgery consultedadmitted with right thalamic hemorrhage followed by CT of the brain left-sided weakness improved, patient had nonsurgical management guided by the neurosurgeon, maintaining blood pressure under control Protonix PT OT. Patient eventually cleared by neurosurgeon for discharge with outpatient physical therapy [id number] encounter performed with the patient on discharge day, as well as physical exam, summary of hospitalization course and postdischarge plan has been D/W the patient. D/W nurse D/W case management specialist. Discharge medications reviewed and printed and signed, post discharge follow up visit with PCP and other specialist as well as Brief hospital course and discharge summary has been placed. Pt Condition on Discharge: Fair Discharge Disposition: Discharge Home Discharge Time: > 30 minutes Discharge Instructions DIET: Follow Instructions for: Heart Healthy Diet Activities you can perform: See Additionl Instruction Other Activity Instructions: per PT recs New Medications: Levetiracetam (Levetiracetam) 250 Mg Tab 100 MG PO BID for Control Seizures, #60 TAB 0 Refills Continued Medications: Atorvastatin (Lipitor) 40 Mg Tab 40 MG PO HS for Cholesterol Management, #30 TAB 0 Refills Lisinopril (Lisinopril) 10 Mg Tab 10 MG PO DAILY, #30 TAB 0 Refills Ranitidine (Zantac) 150 Mg Tab 150 MG PO DAILY for Reduce Stomach Acid, #30 TAB 0 Refills Paola Romero MD Jul 15, 2017 11:00
== END 2017-07-15 13:25 | disposition home or self-care (01) | DRG 65 ==
LOC: PHED 14:50 → PHEDA 15:47 → N03A 19:03
PROVIDERS: ADMIT Hospitalist; ATTEND Hospitalist
DX: I61.8 Other nontraumatic intracerebral hemorrhage (principal); G81.94 Hemiplegia, unspecified affecting left nondominant side; G93.89 Other specified disorders of brain; I10 Essential (primary) hypertension; E78.5 Hyperlipidemia, unspecified; K21.9 Gastro-esophageal reflux disease without esophagitis; R29.810 Facial weakness; D50.9 Iron deficiency anemia, unspecified; Z85.3 Personal history of malignant neoplasm of breast; Z86.73 Personal history of transient ischemic attack (TIA), and cerebral infarction without residual deficits
CPT/HCPCS: 70450; 70496; 70498; 71045; 80053; 80307; 81001; 82550; 82728; 82948; 83540; 83550; 83735; 84100; 84443; 84466; 84484; 85025; 85044; 85384; 85610; 85730; 86077; 86850; 86870; 86900; 86901; 86920; 86922; 87641; 93005; 94150; 99291; J1953; J7030; Q9967